=== PATIENT | male | born 1945 | race Caucasian/White ===

== ENCOUNTER 2019-03-21 13:22 | Inpatient (IN) | payer MEDICARE ==
[~2019-03-21] VITALS: Ht 180.3 cm; Wt 78.2 kg
[~2019-03-21 13:22] MED LIST: ATIVAN1 MG PO; CELEXA20 M1 PO; CEPHALEXIN500 MG PO; NORCO1 TA1 PO
--- NOTE | 2019-03-21 13:34 | NUR ---
PT AMB TO ROOM IN NO DISTRESS
[2019-03-21] MEDS ORDERED: DILTIAZEM120 MG PO (13:35)
[2019-03-21] MEDS ORDERED: OXYCODONE10 M1 PO (13:36)
[2019-03-21] MEDS ORDERED: ELIQUIS5 MG PO (13:38)
--- NOTE | 2019-03-21 14:00 | NUR ---
AFTER NEB TX PT CONTINUES WITH INSPIRATORY AND EXPIRATOY WHEEZING. MD AWARE. PT REPORTS BREATHING FEELS BETTER. SP02 92%.
--- NOTE | 2019-03-21 15:00 | NUR ---
AT BEDSIDE TO DISCUSS RESULTS WITH PT. PT AGREED FOR ADMISSION.
[2019-03-21 15:24] LABS: HEMATOCRIT 39.7 % (39.0-50.0); HEMOGLOBIN 12.9 g/dl (14.0-18.0); IMMATURE GRANULOCYTES 0.3 % (0.0-5.0); MEAN CELL VOLUME 90.4 fL CALC (80.0-100.0); MEAN CORPUSCULAR HGB 29.4 pG CALC (26.0-32.0); MEAN CORPUSCULAR HGB CONC 32.5 g/L CALC (32.0-36.0); NEUT# 5.61 thou/uL (1.82-7.42); RED BLOOD COUNT 4.39 mill/uL (4.70-6.10); RED CELL DISTRI WIDTH 13.6 % (11.5-15.5)
[2019-03-21 15:47] LABS: ANION GAP 13 (6-22 (CALC)); BUN 10 mg/dL (8-23); BUN/CREATININE RATIO 15 (12-20 (CALC)); CARBON DIOXIDE 28 mmol/l (22-30); CHLORIDE 101 mmol/l (95-108); CREATININE 0.7 mg/dL (0.7-1.3); GFR > 60 ML/MIN (>=60 (CALC)); GFR FOR AFR.AMER. > 60 ML/MIN (>=60 (CALC)); POTASSIUM 3.7 mmol/l (3.5-5.1); SODIUM 139 mmol/l (137-146)
--- NOTE | 2019-03-21 16:00 | NUR ---
IV ABX AND FLUIDS INFUSIMG WITH NO DIFFICULTY. PT DENIES ANY REDNESS OR EDEMA TO SITE.
--- NOTE | 2019-03-21 16:27 | NUR ---
MD AT BEDSIDE TO DISCUSS RESULTS AND PLAN FOR ADMISSION.
--- NOTE | 2019-03-21 17:00 | NUR ---
PT RESTING IN STRETCHER IN NAD WITH EYES CLOSED. PT AWAKENS TO VERBAL STIMULI. SA02 97% ON 3 L AT THIS TIME.
--- NOTE | 2019-03-21 17:22 | NUR ---
ATTEMPTED TO CALL REPORT, NURSE WILL CALL BACK.
--- NOTE | 2019-03-21 17:32 | NUR ---
PT REPORT CALLED TO VILMA SAGASTUME.
--- NOTE | 2019-03-21 17:45 | NUR ---
Admission Note Report Given to: VILMA SAGASTUME Transported by: X Wheelchair Stretcher Transported with: X Nurse Transporter Patent IV X O2 X Sane Nurse PT TO ROOM 289, VIA WHEELCHAIR IN STABLE CONDITION ON 3 L, NC. CARE RELINQUISHED TO VILMA SAGASTUME.
--- NOTE | 2019-03-21 17:48 | NUR ---
PT ARRIVED FROM ER VIA WC WITH STAFF DEJUAN FAMILY
--- NOTE | 2019-03-21 18:08 | NUR ---
ASSESSMENT IS COMPLETED: IV SITE IS FREE FROM REDNESS OR EDEMA. TELE MONITOR IN PLACE. BREATH SOUNDS ARE WHEEZING BILATERAL WITH R LOWER LOBE GONE FROM SURGERY, HR IS IRREGULAR, PULSES ARE STRONG X4, ABD IS SOFT WITH ACTIVE BS. O2 @ 3LITERS WITH NC. CONTINUE TO OSBERVE AND MONITOR.
[2019-03-21 18:13] VITALS: BP 132/76
--- NOTE | 2019-03-21 18:49 | NUR ---
SPOKE WITH DR JI AND [facility] ([facility]) RE: ROXICODONE AND DILTIAZEM CD. CONFIRMED BOTH ARE WHAT PT TAKES AT HOME. WITH NO ISSUES. VERBALIZED UNDERSTANDING
--- NOTE | 2019-03-21 19:00 | NUR ---
RECEIVED REPORT FROM NURSE SAGASTUME, PATIENT RESTING IN BED C/O GEN BODY PAIN, AWAITING PHARMCY TO VERIFY ROXIDONE.
[2019-03-21 19:10] VITALS: BP 119/73
--- NOTE | 2019-03-21 22:00 | NUR ---
PATIENT ALERT AND ORIENTED X 3 ABLE TO MAKE NEEDS KNOWN, WITH SALINE LOCK ON LFA G20 PATENT AND FLUSHES WELL, REMAINS ON TELE @ SR 68, REMAINS ON O2 @ 3LPM VIA NC WITH SHALLOW, UNLABORED RESPIRATION, CALL LIGHT AT REACH.
--- NOTE | 2019-03-21 22:15 | NUR ---
SPOKE WITH TRISTAN FROM PHARMACY REGARDING CLARIFICATION FOR ROXICODONE AND DILTIAZEM.
[2019-03-21 23:50] VITALS: BP 139/83
--- NOTE | 2019-03-22 | NUR ---
PATIENT RESTING IN BED REMAINS ON O2 @ 3LPM VIA NC, SHALLOW UNLABORED BREATHING, CALL LIGHT AT REACH.
[2019-03-22 03:49] VITALS: BP 146/82
[2019-03-22 05:15] LABS: HEMATOCRIT 37.4 % (39.0-50.0); HEMOGLOBIN 12.3 g/dl (14.0-18.0); IMMATURE GRANULOCYTES 0.2 % (0.0-5.0); MEAN CELL VOLUME 89.3 fL CALC (80.0-100.0); MEAN CORPUSCULAR HGB 29.4 pG CALC (26.0-32.0); MEAN CORPUSCULAR HGB CONC 32.9 g/L CALC (32.0-36.0); NEUT# 3.63 thou/uL (1.82-7.42); RED BLOOD COUNT 4.19 mill/uL (4.70-6.10); RED CELL DISTRI WIDTH 13.5 % (11.5-15.5)
[2019-03-22 05:36] LABS: ANION GAP 9 (6-22 (CALC)); BUN 12 mg/dL (8-23); BUN/CREATININE RATIO 21 (12-20 (CALC)); CARBON DIOXIDE 29 mmol/l (22-30); CHLORIDE 104 mmol/l (95-108); CREATININE 0.6 mg/dL (0.7-1.3); GFR > 60 ML/MIN (>=60 (CALC)); GFR FOR AFR.AMER. > 60 ML/MIN (>=60 (CALC)); POTASSIUM 3.9 mmol/l (3.5-5.1); SODIUM 139 mmol/l (137-146)
--- NOTE | 2019-03-22 06:00 | NUR ---
PATIENT APPEARS TO BE SLEEPING WITH EYES CLOSED, REMAINS ON O2 @ 3LPM, VIA NC EVEN UNLABORED BREATHING CALL LIGHT AT REACH.
[2019-03-22 08:10] VITALS: BP 106/67
--- NOTE | 2019-03-22 08:10 | NUR ---
PATIENT AWAKE, RESTING IN BED ON ROUNDS. BREATH SOUNDS CLEAR, DIMINISHED THROUGHOUT. DRY COUGH NOTED, USING O2 AT 3 L NC. SALINE LOCK IN LFA, SITE BENIGN. SHIFT ASSESSMENT COMPLETED. DISCUSSED PLAN OF CARE. DENIES NEEDS AT THIS TIME. CALL RIOS IN REACH.
[2019-03-22 10:40] VITALS: BP 122/74
--- NOTE | 2019-03-22 12:00 | NUR ---
RESTING QUIETLY IN BED. NO COMPLAINTS VOICED AT THIS ITME. EATING LUNCH.
--- NOTE | 2019-03-22 16:15 | NUR ---
NAPPING ON AND OFF THIS AFTERNOON. AT BEDSIDE AT THIS TIME. ON ENTERING ROOM THERE WAS A STRONG SMELL OF CIGARETTE SMOKE. PATIENT AND HIS BOTH DENY HAVING SMOKED IN THE ROOM. DISCUSSED THE DANGERS OF SMOKING IN THE ROOM, ESPECIALLY WHEN O2 IS IN USE. EXPLAINED THAT [facility] IS A NON-SMOKING FACILITY. PATIENT AND BOTH VERBALIZE UNDERSTANDING OF TEACHING.
[2019-03-22 19:16] VITALS: BP 127/74
--- NOTE | 2019-03-22 19:18 | NUR ---
PATIENT RESTING IN BED AT THIS TIME WITH O2 VIA NASAL CANNULA IN PLACE. HOB ELEVATED AND TELE MONITOR IN PLACE. PATIENT IS C/O PAIN FRON HIS NECK TO HIS BUTTOCKS. TOO EARLY TO MEDICATE AT THIS TIME-WAS LAST MEDICATED WITH ROXICODONE 5MG PO AT 1450 THIS AFTERNOON-MED IS ORDERED Q6H. PATIENT STATES THAT THIS IS NOT RIGHT-CALL PLACED TO DR. MANRIQUE REGUARDING PAIN MEDS. LEFT MESSAGE REGUARDING THIS ISSUE. WILL AWAIT CALL BACK. PATIENT IS AWARE OF THIS CURRENT SITUATION. CALL LIGHT IN REACH. WILL CONT TO MONITOR.
--- NOTE | 2019-03-22 21:15 | NUR ---
PATIENT RESTING IN BED WITH O2 VIA NASAL CANNULA IN PLACE AND WATCHING TV. PATIENT MEDICATED WITH ROXICODONE 10MG PO PER NEW ORDERS RECIEVED. PATIENT APPEARS LESS AGITATED AT THIS ITME. TELE MONITOR IN PLACE. SALINE LOCK INTACT TO RAC SITE. SAFETY PRECAUTIONS REINFORCED. CALL LIGHT IN REACH. WILL CONT TO MONITOR.
[2019-03-23] VITALS: BP 129/77
--- NOTE | 2019-03-23 04:45 | NUR ---
PATIENT RESTING IN BED WITH O2 VIA NASAL CANNULA IN PLACE. LABS WERE DRAWN ORDERED. TELE MONITOR IN PLACE. SALINE LOCK TO LEFT FOREARM INTACT. CALL LIGHT IN REACH. WILL CONT TO MONITOR.
[2019-03-23 05:00] VITALS: BP 127/76
[2019-03-23 05:06] LABS: HEMATOCRIT 39.8 % (39.0-50.0); HEMOGLOBIN 13.4 g/dl (14.0-18.0); IMMATURE GRANULOCYTES 0.3 % (0.0-5.0); MEAN CELL VOLUME 88.2 fL CALC (80.0-100.0); MEAN CORPUSCULAR HGB 29.7 pG CALC (26.0-32.0); MEAN CORPUSCULAR HGB CONC 33.7 g/L CALC (32.0-36.0); NEUT# 3.05 thou/uL (1.82-7.42); RED BLOOD COUNT 4.51 mill/uL (4.70-6.10); RED CELL DISTRI WIDTH 13.2 % (11.5-15.5)
[2019-03-23 05:31] LABS: ANION GAP 12 (6-22 (CALC)); BUN 12 mg/dL (8-23); BUN/CREATININE RATIO 24 (12-20 (CALC)); CARBON DIOXIDE 27 mmol/l (22-30); CHLORIDE 103 mmol/l (95-108); CREATININE 0.5 mg/dL (0.7-1.3); GFR > 60 ML/MIN (>=60 (CALC)); GFR FOR AFR.AMER. > 60 ML/MIN (>=60 (CALC)); MAGNESIUM 1.7 mg/dL (1.6-2.3); POTASSIUM 4.4 mmol/l (3.5-5.1); SODIUM 137 mmol/l (137-146)
[2019-03-23 08:05] VITALS: BP 142/79
--- NOTE | 2019-03-23 08:05 | NUR ---
RESTING IN BED ON ROUNDS AT BEDSIDE. RESP NON-LABORED AT REST. BREATH SOUNDS DIMINSHED BUT ESSENTIALLY CLEAR. SALINE LOCK IN LFA, SITE BENIGN. SHIFT ASSESSMENT COMPLETED. DISCUSSED PLAN OF CARE. DENIES NEEDS AT THIS TIME. CALL RIOS INR EACH.
[2019-03-23 10:25] VITALS: BP 137/80
--- NOTE | 2019-03-23 11:51 | NUR ---
GONZALO BECKER IN ER WATCHING TELEMONITORS CALLED AND STATED PT WAS SHOWING A FIB ON THE MONITOR. ENTERED ROOM PT WATCHING TV WITH VISITORS. NO RESP DISTRESS NOTED. NO COMPLAINTS VOICED. VS 78, 18, 118/68. AUSCULATED HEART SOUNDS, IRREGULAR RHYTHM NOTED. WILL CONTINUE TO MONITOR. CALL LIGHT WITHIN REACH.
--- NOTE | 2019-03-23 12:10 | NUR ---
WATCHING TV AND EATING LUNCH. NO COMPLAINTS VOICED. WAITING FOR DR TO VISIT. PATIENT IS HOPING TO BE DC'D TODAY.
--- NOTE | 2019-03-23 13:00 | NUR ---
DR JI AND Bhupinder CARUSO/SENDY IN TO SEE PATIENT. PROVIDERS ARE AWARE THAT PATIENT IS BACK IN AFIB, PATIENT HAS PRIOR HX OF AFIB FOR WHICH HE TAKES ELIQUIS AND CARDIZEM. PATIENT IS FEELING MUCH BETTER TODAY.
[2019-03-23] MEDS ORDERED: IPRATROPIU0.5 MG/3 M IN (13:46)
[2019-03-23] MEDS ORDERED: ZITHROMAX500 MG PO (13:46)
[2019-03-23] MEDS ORDERED: PREDNISONE50 MG PO (13:46)
--- NOTE | 2019-03-23 14:30 | NUR ---
Discharge instructions given. Patient verbalizes understanding of same. Discharged in stable condition via Wheelchair to Home with spouse. All belongings sent with pt.
[2019-10-21] MEDS ORDERED: HYDROCODONE/ACE1 TAB PO (10:02)
[2019-10-21] MEDS ORDERED: METOPROL TAR25 MG PO (11:03)
[2019-11-17] MEDS ORDERED: HYDROCO/APAP1 TA9 PO (09:20)
[2019-12-23] MEDS ORDERED: HYDROCODONE/ACE1 TAB PO (10:24)
== END 2019-03-23 14:30 | disposition home or self-care (01) | DRG 190 ==
LOC: ED 13:22 → ED-I 16:20 → ED 16:35 → MS2 16:36
PROVIDERS: Family Medicine; Nurse Practitioner Family; ADMIT Internal Medicine; ATTEND Internal Medicine
DX: J44.1 Chronic obstructive pulmonary disease with (acute) exacerbation (principal); J96.21 Acute and chronic respiratory failure with hypoxia; I48.20 Chronic atrial fibrillation, unspecified; I10 Essential (primary) hypertension; F17.210 Nicotine dependence, cigarettes, uncomplicated; G89.29 Other chronic pain; M54.9 Dorsalgia, unspecified; Z90.2 Acquired absence of lung [part of]; Z85.118 Personal history of other malignant neoplasm of bronchus and lung
CPT/HCPCS: G0378

== ENCOUNTER 2019-09-17 00:59 | Inpatient (IN) | payer MEDICARE ==
[~2019-09-17] VITALS: Ht 180.3 cm; Wt 85.8 kg
[~2019-09-17 00:59] MED LIST changes: +DILTIAZEM120 MG PO; +ELIQUIS5 MG PO; +IPRATROPIU0.5 MG/3 M IN; +OXYCODONE10 M1 PO; +PREDNISONE50 MG PO; +ZITHROMAX500 MG PO
--- NOTE | 2019-09-17 01:09 | NUR ---
PT WHEELED TO ROOM 8 FOR TRIAGE.
[2019-09-17 02:41] LABS: IMMATURE GRANULOCYTES 0.4 % (0.0-5.0); MEAN CELL VOLUME 86.4 fL CALC (80.0-100.0); MEAN CORPUSCULAR HGB 29.4 pG CALC (26.0-32.0); MEAN CORPUSCULAR HGB CONC 34.1 g/dL CAL (32.0-36.0); NEUT# 13.34 thou/uL (1.82-7.42); RED BLOOD COUNT 6.18 mill/uL (4.70-6.10); RED CELL DISTRI WIDTH 13.5 % (11.5-15.5)
[2019-09-17 02:42] LABS: HEMATOCRIT 53.4 % (39.0-50.0); HEMOGLOBIN 18.2 g/dl (14.0-18.0)
[2019-09-17 02:46] LABS: ALBUMIN 4.7 g/dL (3.2-5.0); ALKALINE PHOSPHATASE 107 u/l (38-126); AMYLASE 60 u/l (30-110); ANION GAP 14 (6-22 (CALC)); BILIRUBIN, TOTAL 1.9 mg/dL (0.0-1.4); BUN 21 mg/dL (8-23); BUN/CREATININE RATIO 25 (12-20 (CALC)); CARBON DIOXIDE 29 mmol/l (22-30); CHLORIDE 99 mmol/l (95-108); CREATININE 0.8 mg/dL (0.7-1.3); GFR > 60 ML/MIN (>=60 (CALC)); GFR FOR AFR.AMER. > 60 ML/MIN (>=60 (CALC)); LIPASE 16 u/l (23-300); SGOT/AST 56 u/l (19-48); SODIUM 137 mmol/l (137-146); TOTAL PROTEIN 8.8 g/dL (6.3-8.2)
[2019-09-17 02:51] LABS: POTASSIUM 5.1 mmol/l (3.5-5.1)
--- NOTE | 2019-09-17 03:25 | NUR ---
PATIENT TO START ORAL CONTRAST AT 0330, FAMILY AT BEDSIDE TO ASSIST, PATIENT RESTING WITH EYES CLOSED, RESPIRATIONS EVEN AND UNLABORED, C/O PAIN, NO S/S OF DISTRESS NOTED.
--- NOTE | 2019-09-17 04:54 | NUR ---
PATIENT FINISHED ORAL CONTRAST, RADIOLOGY NOTIFIED, NO C/O PAIN OR DISCOMFORT, NO S/S OF DISTRESS NOTED, RESTING QITH EYES CLOSED, AT BEDSIDE.
--- NOTE | 2019-09-17 06:02 | NUR ---
PT RETURNED FROM RADIOLOGY, NO S/S OF DISTRESS NOTED, AT BEDSIDE, RESPIRATIONS EVEN AND UNLABORED.
[2019-09-17 06:17] LABS: URINE BLOOD DIPSTICK TRACE-INTACT (NEGATIVE); URINE GLUCOSE - DIPSTICK NEGATIVE (NEGATIVE); URINE KETONE TRACE mg/dL (NEGATIVE); URINE LEUK ESTERASE NEGATIVE (NEGATIVE); URINE PROTEIN - DIPSTICK 100 mg/dL (NEG-TRACE); URINE SPECIFIC GRAVITY 1.025
[2019-09-17 06:36] LABS: URINE BILIRUBIN - DIPSTICK MODERATE (NEGATIVE); URINE NITRITE - DIPSTICK POSITIVE (Negative)
[2019-09-17 06:37] LABS: URINE COLOR DK. YELLOW
[2019-09-17 06:38] LABS: URINE BACTERIA FEW hpf; URINE SQUAMOUS EPITHELIAL CELL FEW EPI/hpf (0-FEW)
--- NOTE | 2019-09-17 06:56 | NUR ---
HAND OFF REPORT GIVEN TO PATRICE SILVERMAN
--- NOTE | 2019-09-17 07:01 | NUR ---
ASSUMED CARE OF PT. PT RESTING WITH EYES LCOSED, AWAKENS EASILY. SPOUSE AT BEDSIDE.
--- NOTE | 2019-09-17 07:29 | NUR ---
PT AWAKENED TO DISCUSS CLINICAL FINDINGS AND NEED FOR NG TUBE, PT REFUSING NG TUBE, STATES " HELL NO, THAT SHIT IS NOT GOING TO HAPPEN. I'VE HAD A LOT OF MEDICAL THINGS HAPPEN TO ME AND AN NG TUBE TODAY IS NOT GOING TO BE ONE OF THEM" ATTEMPTED TO EXPLAIN THE IMPORTANCE OF NG TUBE BUT PT HAD NO INTEREST IN ANY CONVERSATION CONCERNING NG TUBE AND REFUSES IT REPEATEDLY. DR CAMPBELL NOTIFIED.
--- NOTE | 2019-09-17 08:59 | NUR ---
WARM BLANKETS APPLIED FOR PT COMFORT. HE VERBALIZED APPRECIATION.
--- NOTE | 2019-09-17 09:14 | NUR ---
REPORT GIVEN TO STEVEN IBRAHIM.
--- NOTE | 2019-09-17 09:28 | NUR ---
PT TO ROOM VIA WC ACCOMPANIED BY NURSE AND SPOUSE; PT TO BRP WITH STAND BY ASSIST; PT HAD SMALL HARD BROWN STOOL; VS AND WT OBTAINED; PT AND SPOUSE ORIENTED TO ROOM AND CALL SYSTEM; PT C/O ABD PAIN 8/10 AND NAUSEA, MEDICATED ORDERED; IVF INFUSING IN #18 GAUGE LAC WITHOUT REDNESS OR EDEMA NOTED; PT INSTRUCTED ON NPO STATUS, VERBALIZE UNDERSTANDING OF SAME; CALL RIOS WITHIN REACH; WILL CONTINUE TO MONITOR.
[2019-09-17 09:34] VITALS: BP 151/93
--- NOTE | 2019-09-17 10:33 | NUR ---
PT RESTING WITH EYES CLOSED; SPOUSE AT BEDSIDE; NO S/SX OF DISTRESS NOTED; WILL CONTINUE TO MONITOR
--- NOTE | 2019-09-17 12:14 | NUR ---
PT CONTINUES TO REST WITH EYES CLOSED; NO S/SX OF DISTRESS NOTED; SPOUSE AT BEDSIDE; WILL CONTINUE TO MONITOR.
--- NOTE | 2019-09-17 12:20 | NUR ---
DR. BAXTER IN TO SEE PT; PLAN OF CARE DISCUSSED
--- NOTE | 2019-09-17 13:59 | NUR ---
PT TOLERATED FULL LIQ DIET WELL; SPOUSE IN ROOM; CALL RIOS WITHIN REACH; WILL CONTINUE TO MONITOR.
[2019-09-17 15:34] VITALS: BP 146/77
[2019-09-17 19:03] VITALS: BP 139/92
--- NOTE | 2019-09-17 20:45 | NUR ---
UPON ENTERING ROOM PT FOUND TO BE LAYING ON HIS SIDE. SPOUSE AT BEDSIDE. PHYSICAL ASSESMENT COMPLETE. PT REPORTS UNRELIEVED N/V. PT AND SPOUSE REQUESTING PHENERGAN FOR N/V THEY FEEL IT WAS MORE EFFECTIVE THAN ZOFRAN WHEN HE HAD PREVIOUSLY HAD A DOSE. EDUCATION PROVIDED ON NGT MOST EFFECTIVE INTERVENTION FOR PT'S SBO RELATED SYMPTOMS. PT DOES CON'T TO DECLINE.PLAN OF CARE FURTHER REVIEWED W/ PT AND SPOUSE. PT AND SPOUSE VERBALIZE UNDERSTANDING, DENY QUESTIONS. ITEMS WITHIN REACH. BED LOCKED IN LOW POSITION W/ BEDRAILS UPX2. CALL RIOS WITHIN REACH, AGREES TO CALL PRN. SPOKE W/ DR. COHN, REPORTED ABD PAIN, UNRELIEVED N/V, PT AND SPOUSES REQUEST FOR PHENERGAN, LAST WBC COUNT AND CURRENT VS/ASSESEMENT. ORDERS RECEIVED FOR PHENERGAN, NPO, ABD X-RAY IN AM.
--- NOTE | 2019-09-17 22:10 | NUR ---
MEDICATED W/ PHENERGAN FOR N/V AND MORPHINE FOR ABD PAIN 10/07, SEE MAR.
--- NOTE | 2019-09-17 22:30 | NUR ---
PT'S SPOUSE CALLS NURSES STATION FOR UPDATE ON PT'S STATUS. PROVIDES APPROPRITAE COMMUNICATION CODE #. UPDATE PROVIDED.
[2019-09-18] VITALS (12 sets, daily range): BP systolic 110–145; BP diastolic 65–95
--- NOTE | 2019-09-18 00:15 | NUR ---
PT APPEARS TO BE SLEEPING COMFORTABLE ON HIS SIDE. NO APPARENT DISTRESS RESPIRATIONS REGULAR AND UNLABORED. CALL RIOS REMAINS WITHIN REACH.
--- NOTE | 2019-09-18 02:16 | NUR ---
PT REPORTS WAKING UP W/ 12/08 ABD PAIN. MEDICATED W/ MORPHINE AND ZOFRAN. SEE MAR.
--- NOTE | 2019-09-18 05:17 | NUR ---
RADIOLOGY AT BEDSIDE FOR AM ABD X-RAY.
--- NOTE | 2019-09-18 06:30 | NUR ---
PT REPORTS ABD PAIN AND N/V IS INCREASING IN SEVERITY, AGREES TO ATTEMPT NGT INSERTION. ATTEMPTED TO INSERT AND PT IMMEDIATELY PULLED THIS NURSES ARM AND THE NGT FORCEFULLY FROM HIS NARE AND REFUSED TO CARRY ON W/ INSERTION ATTEMPT.
--- NOTE | 2019-09-18 07:29 | NUR ---
PT RESTING IN BATHROOM VOMITING, PT STATES HE COULD NOT TAKE THE NGT INSERTION. DISCUSSED BENEFITS OF NGT AND POC, PT VERBALIZED UNDERSTANDING. RESP EVEN AND UNLABORED. ASSISTED PT BACK IN BED. ASSESSMENT COMPLETED, CALL LIGHT IN REACH,CONTINUE TO MONITOR.
--- NOTE | 2019-09-18 09:38 | NUR ---
PT IN BATHROOM, VOMITING SMALL AMT OF BLOOD NOTED. AT BEDSIDE. PT VOICES NO NEEDS OR COMPLAINTS, PT MEDICATED FOR NAUSEA AND PAIN. CALL LIGHT IN REACH,CONTINUE TO MONITOR.
--- NOTE | 2019-09-18 10:54 | NUR ---
TO SEE PT DISCUSS POC AND PLANS FOR SURGERY.
--- NOTE | 2019-09-18 11:11 | NUR ---
DISCUSSED WITH PT REGARDING SURGERY, OBTAINED CONSENT , AT BEDSIDE. CALL LIGHT IN REACH,CONTINUE TO MONITOR.
--- NOTE | 2019-09-18 12:23 | NUR ---
OR ARRIVED TO TAKE PT FOR SURGERY, DISCUSSED RAPID COVID SWAB, PT SWABBED BY OR NURSE. ANCEF INFUSION INITIATED. CALL LIGHT IN REACH,CONTINUE TO MONITOR.
--- NOTE | 2019-09-18 12:32 | NUR ---
PT TAKEN TO OR VIA BED ACCOMPANIED BY STAFF
--- NOTE | 2019-09-18 15:55 | NUR ---
PT RETURNED FROM OR VIA BED, NO SIGNS OF DISTRESS NOTED, RESP EVEN AND UNLABORED. PT DROWSY FROM ANETHES[place], 2 OR NURSES WITH PT. SCD'S PLACED. DRESSING TO ABD CDI, ABDOMINAL BINDER IN PLACE. TUCKER DRAINING TO GRAVITY, STAT LOCK IN PLACE. NGT TO L NARE CHECKED FOR PLACEMENT AND CONNECTED TO CONTINUOUS LOW SUCTION PER ORDERS. INCENTIVE SPIROMETER PLACED AT BEDSIDE WILL DISCUSS WITH PT, 02 3L NC AND VITALS OBTAINED. CALL LIGHT IN REACH, CONTINUE TO MONITOR.
--- NOTE | 2019-09-18 17:03 | NUR ---
PT STATES HE HAS TO HAVE A BM, PT PLACED ON BEDPAN AT THIS TIME. AT BEDSIDE, CONTINUE TO MONITOR.
--- NOTE | 2019-09-18 17:18 | NUR ---
PT ADAMANT ABOUT GETTING UP BSC INSTEAD OF BEDPAN. PT ASSISTED TO BSC, TOLERATED WELL. AT BEDSIDE, PT TO CALL ONCE READY TO RETURN TO BED. CALL LIGHT IN REACH,CONTINUE TO MONITOR.
--- NOTE | 2019-09-18 20:30 | NUR ---
UPON PHYSICAL EXAM RAPID AND IRREGULAR APICAL HEART SOUNDS APPRECIATED. PT HAS A KNOWN HISTORY OF AFIB. CARDIZEM DOSE GIVEN @ THIS TIME. PT TOLERATED W/ SMALL SIPS OF WATER. SUCTION OFF/NGT CLAMPED @ THIS TIME. VICE PRESIDENT TALENT MANAGEMENT REQUESTED FROM ED.
--- NOTE | 2019-09-18 20:45 | NUR ---
FOOD SERVICE SUPERVISOR SHOWS RAPID AFIB W/ RVR RATE 120'S-150S PER ED SOUND EQUIPMENT MECHANIC. DR. BAXTER CALLED AND UPDATED W/ FINDINGS. ORDER IS TO COSNULT DR. MANRIQUE FOR MEDICAL MANAGMENT.
--- NOTE | 2019-09-18 21:05 | NUR ---
DR. MANRIQUE INFORMED OF CONSULT AND EXAM FINDINGS, ORDER IS FOR AMIODARONE 150MG IV X1.
--- NOTE | 2019-09-18 22:00 | NUR ---
PER INTERACTIVE MEDIA DESIGNER PT WILL NEED TO BE MOVED TO ICU FOR AMIODARONE BOLUS. DR MANRIQUE INFORMED. CLARIFICATION RECEIVED TO TX TO ICU AND GIVE AMIODARONE 150MG IV BOLUS, REPEAT X1 IF INEFFECTIVE.
--- NOTE | 2019-09-18 22:15 | NUR ---
PT INFORMED OF TX TO ICU, CALLED PTS AND INFORMED HER OF ICU TX.
--- NOTE | 2019-09-18 22:30 | NUR ---
REPORT ENDORSED TO Misa NASSAR RN IN ICU.
--- NOTE | 2019-09-18 22:40 | NUR ---
PT TRANSFERRED TO ICU ROOM #3 W/O INCIDENT.
--- NOTE | 2019-09-18 22:45 | NUR ---
RECEIVED FROM M/S VIA BED D/T PATIENT AFIB RVR EARLIER ON MS WITH HR REPORTED 120-50'S. PATIENT PLACED ON ICU HEEL SCORER SHOWING AFIB, VARIABLE HR 110'S-120'S. RESP NON-LABORED. O2 ON AT 4 L NC. SHIFT ASSESSMENT COMPLETED. ORIENTED PATIENT TO SURROUNDING AND EXPLAINED PLAN OF CARE. REASURRANCE PROVIDED REGARDING BEING TRANSFERRED TO ICU. CALL RIOS IN REACH.
--- NOTE | 2019-09-18 23:07 | NUR ---
BP 113/86, HR 112. AMIODARONE 150 MG/100 ML NS BOLUS STARTED.
--- NOTE | 2019-09-18 23:12 | NUR ---
BP 128/77, HR 116.
--- NOTE | 2019-09-18 23:17 | NUR ---
AMIODARONE BOLUS COMPLETED. BP 108/75, HR 108.
--- NOTE | 2019-09-18 23:27 | NUR ---
MEDICATED WITH DILAUDID ORDERED FOR C/O OPERATIVE PAIN RATES 11/07.
--- NOTE | 2019-09-18 23:37 | NUR ---
DR. MANRIQUE INFORMED OF CONSULT, ORDER IS FOR AMIODARONE 150MG IV X1.
[2019-09-19] VITALS (16 sets, daily range): BP systolic 97–159; BP diastolic 73–90
--- NOTE | 2019-09-19 02:30 | NUR ---
TURNS AND REPOSITIONS SELF WELL. MEDICATED FOR OPERATIVE PIN ORDERED.
--- NOTE | 2019-09-19 03:00 | NUR ---
RESTING WITH EYES CLOSED.
--- NOTE | 2019-09-19 04:45 | NUR ---
[facility]. MEDICATED FOR C/O PAIN ORDERED.
[2019-09-19 05:10] LABS: IMMATURE GRANULOCYTES 0.2 % (0.0-5.0); MEAN CELL VOLUME 89.9 fL CALC (80.0-100.0); MEAN CORPUSCULAR HGB 29.7 pG CALC (26.0-32.0); MEAN CORPUSCULAR HGB CONC 33.1 g/dL CAL (32.0-36.0); NEUT# 4.21 thou/uL (1.82-7.42); RED BLOOD COUNT 4.17 mill/uL (4.70-6.10); RED CELL DISTRI WIDTH 13.7 % (11.5-15.5)
[2019-09-19 05:12] LABS: HEMATOCRIT 37.5 % (39.0-50.0); HEMOGLOBIN 12.4 g/dl (14.0-18.0)
[2019-09-19 05:48] LABS: ANION GAP 6 (6-22 (CALC)); BILIRUBIN, TOTAL 1.3 mg/dL (0.0-1.4); BUN 21 mg/dL (8-23); BUN/CREATININE RATIO 25 (12-20 (CALC)); CARBON DIOXIDE 31 mmol/l (22-30); CHLORIDE 103 mmol/l (95-108); CREATININE 0.8 mg/dL (0.7-1.3); GFR > 60 ML/MIN (>=60 (CALC)); GFR FOR AFR.AMER. > 60 ML/MIN (>=60 (CALC)); POTASSIUM 4.2 mmol/l (3.5-5.1); SGOT/AST 18 u/l (19-48); SODIUM 135 mmol/l (137-146)
[2019-09-19 05:49] LABS: ALBUMIN 2.6 g/dL (3.2-5.0); ALKALINE PHOSPHATASE 40 u/l (38-126)
--- NOTE | 2019-09-19 06:00 | NUR ---
RESTING WITH EYES CLOSED. PHONED IN EARLIER FOR CONDITION UPDATE.
--- NOTE | 2019-09-19 07:20 | NUR ---
pt awake in bed; no apparent distress noted; assessment completed at this time; pt alert and oriented; complaints of abd pain rating 10/10; will medicate; no n/v noted; resp even and unlabored; lungs noted wihtth upper ant wheezing otherwise clear; skin color wnl; o2 per nc at 4L; hr irreg; strong pulses; no edema noted; bilat scds intact; afib on monitor; abd soft with bs hypoactibe in rlq otherwise absent; no bm noted; pt denies passing flatus; lazar to gravity draining ramiro urine; #18 flushed and patent to lac; fluids infusing without complication; no redness or edema noted at site; ng tube to lis intact to left nare with tea colored gastric secretions; abd binder intact/ repositioned; cough, deep breathing explained; IS at bedside; pt instructed to use q1 hr x 10 reps; call light within reach; will continue to monitor
--- NOTE | 2019-09-19 08:03 | NUR ---
resting in bed on left side with eyes closed; no apparent distress noted; afib on monitor; call light within reach; will continue to monitor
--- NOTE | 2019-09-19 08:40 | NUR ---
Dr Molina present at bedside to assess and discuss plan care; dressing to remain in place today; jingle writer to speak with Dr Banks in regards to heparin sq/ Eliquis to remain on hold
--- NOTE | 2019-09-19 09:00 | NUR ---
spouse present at bedside; pt with complaints of pain; medicated as per orders; spouse updated on plan of care
--- NOTE | 2019-09-19 10:05 | NUR ---
Dr Banks present at bedside to assess pt and discuss plan of care; spouse present at bedside; iv intact and patent; afib on monitor; call light within reach; will continue to monitor
--- NOTE | 2019-09-19 10:24 | NUR ---
NS bolus initiated as per orders for tachycardia; afib 137 on monitor; will continue to monitor
--- NOTE | 2019-09-19 12:08 | NUR ---
awake in bed; spouse present at bedside; no apparent distress noted; resp even and unlabored; remains npo; ice chips provided; ng tube intact; afib on monitor with hr between 116-140s; call light within reach; will continue to monitor
--- NOTE | 2019-09-19 14:20 | NUR ---
awake in bed; spouse present at bedside; no apparent distress noted; pt assist to recliner x2 staff; admits to abd pain; abd binder intact; ng tube clamped for cardizem admin; afib on monitor; monitoring attachments connected; call light within reach; will continue to monitor
--- NOTE | 2019-09-19 16:03 | NUR ---
pt awake in recliner; no apparent distress noted; spouse present at bedside; pt remains up to recliner; afib 100 on monitor; lazar to gravity; iv intact and patent; ng tube intact; pt admits to pain relief; pt admits to taking a lot of pain meds at home; call light within reach; will continue to monitor
--- NOTE | 2019-09-19 18:20 | NUR ---
awake in recliner; no apparent distress noted; spouse at bedside; resp even and unlabored; iv intact and patent; afib on monitor; ng tube connected to LCS; lazar to gravity; call light within reach
--- NOTE | 2019-09-19 19:35 | NUR ---
SITTING UP IN RECLINER. C/O OPERATIVE PAIN RATES 8/10. MEDICATED WITH DILAUDID ORDERED. RESP NON-LABORED. O2 ON AT 4 L NC. O2 SAT 97% BREATH SOUNDS CLEAR. ENC COUGHING AND DEEP BREATHING EXERCISES. USES IS-10 REPITIONS, VOLUME 750. SHIFT ASSESSMENT COMPLETED. IV IN LAC, SITE BENIGN. D5LR INFUSING AT 150 ML/HR. DISCUSSED PLAN OF CARE AND MEDICATION SCHEDULE. PATIENT DENIES NEEDS AT THIS TIME. CALL RIOS IN REACH. MONITOR AFIB VARIABLE HR 100-110'S.
--- NOTE | 2019-09-19 21:50 | NUR ---
MEDICATED AGAIN FOR C/O OPERATIVE PAIN. WILLIAM SITTING UP IN CHAIR.
--- NOTE | 2019-09-19 22:45 | NUR ---
PATIENT ATTEMPTING TO GET UP TO BSC FROM RECLINER ON HIS OWN. ASSISTED PATIENT TO BSC AND REINSTRUCTION ON CALLING NURSE FOR ASSISTANCE. NO BM. ASSISTED BACK TO BED. HR HAS BEEN RUNNING UPPER 120'S OVER PAST HALF AN HOUR. WILL CONTINUE TO MONITOR.
--- NOTE | 2019-09-19 23:05 | NUR ---
PATIENT RESTING IN BED CALMLY AND QUIETLY. CONTINUES IN AFIB ON MOITOR, HR VARIABLE 120'S-150'S. INFOMRED DR MANRIQUE OF ELEVATED HR, NEW ORDERS RECEIVED.
[2019-09-20] VITALS (18 sets, daily range): BP systolic 107–159; BP diastolic 69–90
--- NOTE | 2019-09-20 00:15 | NUR ---
20 MG CARDIZEM BOLUS GIVEN OVER 2 MINUTES PER PROTOCOL. CARDIZEM GTT STARTED AT 10 MG/HR. HR 90'S-110.
--- NOTE | 2019-09-20 01:10 | NUR ---
MEDICATED FOR PAIN ORDERD. IV INFUSING WITHOUT INCIDENT.
--- NOTE | 2019-09-20 02:10 | NUR ---
RESTING WITH EYES CLOSED. RESP NON-LABORED.
--- NOTE | 2019-09-20 04:15 | NUR ---
REAMINS IN AFIB ON MONITOR, HR 80'S-90'S. VSS. CARDIZEM GTT CONTINUES AT 10 MG/HR.
--- NOTE | 2019-09-20 06:00 | NUR ---
MEDICATED FOR ABD PAIN EARLIER, PATIENT STATES PAIN IS SUBSIDING. IV SITE MAINTAINED IN LFA WITH CARDIZEM GTT INCREASED TO 15 MG/HR. LAC IV SITE WITH D5LR INFUSING AT 150 ML/HR. BOTH IV SITES BENIGN. NGT OUTPUT I CHILD ADVOCATE COLE THIS MORNING WITH DARK FLECKS. TUCKER DRAINED 1000 ML OF CLEAR FELECIA URINE. REMAINS AFIB ON MONITOR.
--- NOTE | 2019-09-20 06:45 | NUR ---
RECIEVED REPORT FROM PATRICE DAVISON. ASSUMED PT CARE.
--- NOTE | 2019-09-20 07:00 | NUR ---
DR. BAXTER AT BEDSIDE FOR ASSESSMENT AND TO DISCUSS PLAN OF CARE. NEW ORDERS RECIEVED.
--- NOTE | 2019-09-20 07:05 | NUR ---
PT A&0X3, ABLE TO MAKE NEEDS. REMAINS AFIB ON TELEMETRY, HR 83. PT DENIES CP, SOB. NG INTACT WITH INTERMITTANT SUCTION, LIGHT BROWN.,RESPIRATIONS EVEN/UNLABORED, LS CLEAR THROUGHOUT, SA02@93% ON 4LPM/NC. ABDOMEN TENDER, BS ABSENT X3. ABDOMINAL BINDER INTACT, DRSG CDI, NO DRAINAGE NOTED. TUCKER PATENT, DRAINING TO BSD VIA GRAVITY, CLEAR FELECIA URINE NOTED. SCD'S BLE INTACT. PT REMAINS NPO, CALL LIGHT IN REACH. WILL MONITOR.
--- NOTE | 2019-09-20 09:11 | NUR ---
PT MEDICATED FOR ABDOMINAL PAIN ORDERED, PER PT REQUEST. 09/07. TUCKER CATHETER REMOVED AFTER DEFLATING 10ML BALLOON, PT TOLERATED WELL.
--- NOTE | 2019-09-20 09:41 | NUR ---
PT ASSISTED, SBA TO RECLINER, PT TOLERATED TRANSFER WELL. PT VOIDED 50ML IN URINAL. CALL LIGHT IN REACH. WILL MONITOR.
--- NOTE | 2019-09-20 10:00 | NUR ---
DR. GOMEZ AT BEDSIDE FOR ASSESSMENT AND TO DISCUSS PLAN OF CARE. NEW ORDERS RECIEVED.
--- NOTE | 2019-09-20 10:09 | NUR ---
PT CALLED WITH CODE, UPDATE GIVEN. PT AWARE.
--- NOTE | 2019-09-20 10:30 | NUR ---
NG TUBE CLAMPED OFF, PO MEDS GIVEN. CARDIZEM TITRATED TO 10MG/ML. REMAINS AFIB ON TELEMETRY, HR 91. PT TOLERATED WELL. CALL LIGHT IN REACH. WILL MONITOR.
--- NOTE | 2019-09-20 11:19 | NUR ---
PT MEDICATED FOR ABDOMINAL PAIN11/07 ORDERED PER PT REQUEST. NG TUBE REMAINS CLAMPED. TITRATED CARDIZEM TO 5MG/HR. CALL LIGHT IN REACH. WILL MONITOR.
--- NOTE | 2019-09-20 12:00 | NUR ---
PT AT BEDSIDE WITH PT.
--- NOTE | 2019-09-20 12:23 | NUR ---
PT REMAINS SITTING IN RECLINER, CARDIZEM GTT OFF, NG REMAINS CLAMPED. PT DENIES N/V AT THIS TIME. PT DENIES PASSING GAS.CALL LIGHT IN REACH. WILL MONITOR.
--- NOTE | 2019-09-20 13:30 | NUR ---
PT SON ARRIVED AT BEDSIDE.
--- NOTE | 2019-09-20 13:50 | NUR ---
PT MEDICATED FOR ABDOMINAL PAIN 11/07 ORDERED PER PT REQUEST. BSX4 HYPOACTIVE. PT STATED HE MIGHT HAVE TO HAVE A BM SOON, DECLINED TRANSFER TO BSC AT THIS TIME. CALL LIGHT IN REACH. WILL MONITOR.
--- NOTE | 2019-09-20 15:09 | NUR ---
PT SON LEFT BEDSIDE. PT REMAINS IN RECLINER, SLEEPING WITH EYES CLOSED. CALL LIGHT IN REACH. WILL MONITOR.
--- NOTE | 2019-09-20 16:03 | NUR ---
PT ASSISTED TO BSC, TRANSFERRED WELL. CALL LIGHT IN REACH. WILL MONITOR.
--- NOTE | 2019-09-20 16:32 | NUR ---
PT AT BEDSIDE, CM NOTIFIED.
--- NOTE | 2019-09-20 18:36 | NUR ---
PT RESTING IN RECLINER WITH AT BEDSIDE, NG INTACT ON INTERMITTENT SUCTION.CALL LIGHT IN REACH. WILL MONITOR.
--- NOTE | 2019-09-20 19:25 | NUR ---
SITTING UP IN RECLINER. MEDICATED FOR ABDOMINAL PAIN RATES 11/07. RESP NON-LABORED. O2 ON AT 4 L NC. O2 SAT 95% BREATH SOUNDS CLEAR. ENCOURAGED USE OF INCENTIVE SPIROMETER. ABD DISTENDED AND SOMEWHAT FIRM WITH HYPOACTIVE BOWEL SOUNDS HEARD. NGT TO LIS DRAINS COLE MATERIAL. PASSING FLATUS. NO BM OF YET. VOIDS IN URINAL SMALL AMOUNTS CLEAR DARK FELECIA URINE. NO PERIPHERAL EDEMA. SCD'S ON. SALINE LOCK INTACT IN LFA, SITE BENIGN, FLUSHED AND PATENT. IV IN LAC WITH D5LR AT 100 ML/HR, SITE HEALTY. BENCH BORING MACHINE OPERATOR SHOWS AFIB VARIABL HR 90'S-110. DISCUSSED PLAN OF CARE. DENIES NEEDS AT THIS TIME. CALL [place].
--- NOTE | 2019-09-20 21:30 | NUR ---
PATIENT STATES HE WOULD LIKE TO SLEEP IN RECLINER TONIGHT. MEDICATED FOR C/O ABD PAIN.
--- NOTE | 2019-09-20 22:00 | NUR ---
RESTING WITH EYES CLOSED. RESP NON-LABORED.
--- NOTE | 2019-09-20 23:45 | NUR ---
PATIENT ASSISTED UP TO BSC. PASSING GAS, NO BM. ASSISTED BACK TO BED. RESP SLT LABORED WITH EXERTION. ENCOURAGED DEEP BREATHING.
[2019-09-21] VITALS (12 sets, daily range): BP systolic 96–143; BP diastolic 67–98
--- NOTE | 2019-09-21 00:15 | NUR ---
RESTING WITH EYES CLSOED. RESP NON-LABORED AT REST. AFIB ON MONITOR WITH VARIABLE HR 90'S-110'S.
--- NOTE | 2019-09-21 02:00 | NUR ---
SLEEPIN. RESP NON-LABORED. VSS.
--- NOTE | 2019-09-21 03:00 | NUR ---
PATIENT UP TO BSC ON HIS OWN, TANGLED IN CORDS TO MONITORS AND IV TUBING. NGT FOUND OUT. PASTIENT PASSING FLATUS, NO BM. DISCUSSED REINSERTING NGT-WILL MONITOR PATIENT FOR N/V. REMINDED PATIENT TO CALL FOR ASSISANCE TO GET OOB. PATIENT VERBALIZES UNDERSTANDING. C/O AB PAIN.
--- NOTE | 2019-09-21 03:15 | NUR ---
MEDICATED WITH DILAUDID 1 MG FOR C/O ABD PAIN 12/08. CALL RIOS IN REACH.
--- NOTE | 2019-09-21 03:52 | NUR ---
RESTING WITH EYES CLOSED. VSS. RESP NON-LABORED AT REST. AFIB ON MONITOR, HR 80'S-90'S. IV INFUSING WITHOUT INCIDENT.
[2019-09-21 05:19] LABS: HEMATOCRIT 38.7 % (39.0-50.0); HEMOGLOBIN 13.1 g/dl (14.0-18.0); MEAN CELL VOLUME 86.8 fL CALC (80.0-100.0); MEAN CORPUSCULAR HGB 29.4 pG CALC (26.0-32.0); MEAN CORPUSCULAR HGB CONC 33.9 g/dL CAL (32.0-36.0); RED BLOOD COUNT 4.46 mill/uL (4.70-6.10)
[2019-09-21 05:51] LABS: ALBUMIN 2.9 g/dL (3.2-5.0); ALKALINE PHOSPHATASE 59 u/l (38-126); ANION GAP 8 (6-22 (CALC)); BILIRUBIN, TOTAL 1.6 mg/dL (0.0-1.4); BUN 10 mg/dL (8-23); BUN/CREATININE RATIO 17 (12-20 (CALC)); CARBON DIOXIDE 31 mmol/l (22-30); CHLORIDE 97 mmol/l (95-108); CREATININE 0.6 mg/dL (0.7-1.3); GFR > 60 ML/MIN (>=60 (CALC)); GFR FOR AFR.AMER. > 60 ML/MIN (>=60 (CALC)); POTASSIUM 3.5 mmol/l (3.5-5.1); SGOT/AST 22 u/l (19-48); SODIUM 133 mmol/l (137-146); TOTAL PROTEIN 5.9 g/dL (6.3-8.2)
--- NOTE | 2019-09-21 06:16 | NUR ---
NO CHNGES TO REPORT. VSS. NO C/O NAUSEA OR EMESIS. VOIDS IN URINAL. IV SITE MAINTAINED IN LAC AND SALINE LOCK IN LFA. CONTINUES IN AFIB ON MOITOR , HR 90'S.
--- NOTE | 2019-09-21 06:45 | NUR ---
REPORT RECEIVED FROM ERIKA IBRAHIM. CARE ASSUMED.
--- NOTE | 2019-09-21 06:45 | NUR ---
MIDLINE ABD DSG CHANGED FOR SMALL AMOUNT OLD DRIED BLOODY DRAINAGE, YAYA INTACT, INC LINE CLEAN, DRY AND WELL APPROXIMATED. 3 PUNCTURE SITES ON LEFT ABD WITH NO DRAINAGE ON OLD DSG, YAYA INTACT TO EACH SITE. ALL INC CLEANSED WITH NS. MIDLINE INC REDRESSED WITH TELFA DSG SECURED WITH TEGADERM. PUNCTURE SITES TO LEFT ABD COVERED WITH 2X2, SECURED WITH TEGADER. SCD'S CHANGED TO KNEE HIGH REGINALD HOSE. PATIENT ASSISTED UP TO BSC.
--- NOTE | 2019-09-21 07:00 | NUR ---
PATIENT C/O NAUSEA HAD EMESIS OF APPROX 100 ML BILIOUS MATERIAL. ASSISTED BACK TO BED, NO BM, PASSING FLATUS. #16 FR NGT REINSERTED TO RIGHT NARE, PLACEMENT CONFIRMED WITH AIR BOLUS. NGT TO LIS DRAINING BLOOD TINGED COLE SECRETIONS.
--- NOTE | 2019-09-21 07:20 | NUR ---
PT RESTING IN BED AWAKE. PT ALERT AND ORIENTED X3. SHIFT ASSESSMENT COMPLETED AT THIS TIME. IV PATENT X2. PT REQUESTING PAIN MEDICATION AT THIS TIME. PT MEDICATED PER REQUEST. CALL LIGHT IN REACH. WILL CONTINUE TO CLOSELY MONITOR.
--- NOTE | 2019-09-21 07:30 | NUR ---
RT AT BEDSIDE FOR NEB TREATMENT
--- NOTE | 2019-09-21 08:50 | NUR ---
PT MEDICATED WITH AM MEDS. NG CLAMPED AT THIS TIME.
--- NOTE | 2019-09-21 09:41 | NUR ---
PT ASSISTED UP TO BSC TO ATTEMPT FOR A BM. PT TOLERATED TRANSFER WELL.
--- NOTE | 2019-09-21 09:56 | NUR ---
PT UNABLE TO HAVE BOWEL MOVEMENT ASSISTED BACK TO BED. PLACED NG BACK ON LIS AT THIS TIME.
--- NOTE | 2019-09-21 09:57 | NUR ---
DR GOMEZ AT BEDSIDE AT THIS TIME.
--- NOTE | 2019-09-21 10:48 | NUR ---
PT ASSISTED FROM SITTING ON SIDE OF BED TO LYING DOWN. PT ENCOURAGED TO TAKE A NAP DUE TO NOT RESTING THROUGH NIGHT. PT AGREED. BED ALARM SET FOR PT SAFETY. DOOR CLOSED TO REDUCE NOISE. CALL LIGHT IN REACH. WILL CONTINUE TO MONITOR.
--- NOTE | 2019-09-21 10:58 | NUR ---
DR BAXTER AT BEDSIDE AT THIS TIME.
--- NOTE | 2019-09-21 11:10 | NUR ---
NGTUBE CLAMPED PER MD VERBAL ORDER. ENCOURAGED PT TO REST. BED ALARM IN PLACE FOR PT SAFETY.
--- NOTE | 2019-09-21 12:02 | NUR ---
PT OFF BED NICHOLSON. PT CLEANSED. OF SMALL LIQUID BM. ZINC OXIDE PASTE APPLIED. WILL CONTINNUE TO CLOSELY MONITOR.
--- NOTE | 2019-09-21 12:12 | NUR ---
PT RESTING IN BED WITH EYES CLOSED. RESP ARE EVEN AND UNLABORED. NO DISTRESS NOTED. CALL LIGHT IN REACH. BED ALARM IN PLACE. WILL CONTINUE TO MONITOR
--- NOTE | 2019-09-21 13:08 | NUR ---
PHYSICAL THERAPY AT BEDSIDE AT THIS TIME.
--- NOTE | 2019-09-21 13:42 | NUR ---
PT SITTING UP IN RECLINER AT BEDSIDE. SPOUSE IN ROOM. PT PROVIDED PAIN MEDICATION. PT PROVIDED NEB TREATMENT. LINENS CHANGED. CALL LIGHT IN REACH. WILL CONTINNUE TO MONITOR.
--- NOTE | 2019-09-21 13:55 | NUR ---
Pt. found resting in bed, treatment plan explained. Pt. in agreement to participate. Attachments removed by attending nurse before treatment and reattached after treatment. Pt. performed supine to sitting at EOB with min. assist x 1. Sit to stand with v.c.'s for UE push off. Pt. ambulated 2x20 feet using RW and portable O2 at 4L. CGA x 1 provided throughout ambulation and assist from 2nd staff member for handling portable O2. Continual v.c.'s given for proper use of RW, sequencing and safety awareness. After ambulation pt. returned to resting in recliner as requested by nurse of which pt. was in agreement with. V.c.'s required for reaching back to recliner for graded lowering. O2 sats monitored throughout and maintained 91-94%. Pt. left resting comfortably with spouse in room, without questions/concerns. AMPAC score:13.
--- NOTE | 2019-09-21 15:15 | NUR ---
PT ASSISTED BACK TO BED AT THIS TIME. SPOUSE AT BEDSIDE. CALL LIGHT IN REACH. WILL CONTINUE TO MOIOTR.
--- NOTE | 2019-09-21 16:12 | NUR ---
PT RESTING IN BED WITH EYES CLOSED AT THIS TIME. RESP ARE EVEN AND UNLABORED. NO DISTRESS NOTED. VSS ON MONITOR. CALL LIGHT IN REACH. WILL CONTINUE TO MONITOR.
--- NOTE | 2019-09-21 16:20 | NUR ---
PT DENIES N/V AT THIS TIME. NG TUBE REMOVED. PER MD ORDERS FROM EARLIER TODAY. WILL PROCEED WITH CLEAR LIQUID DIET
--- NOTE | 2019-09-21 16:36 | NUR ---
PT ASSISTED UP TO BSC TO ATTEMPT BM AT THIS TIME.
--- NOTE | 2019-09-21 17:00 | NUR ---
PT ASSISTED BACK TO BED NO BM.
--- NOTE | 2019-09-21 19:15 | NUR ---
RESTING IN BED ON ROUNDS. PATIENT STATES FEELING MUCH BETTER THIS EVENING. RESP NON-LABORED AT REST. O2 ON AT 4 L NC. O2 SAT 93% BREATH SOUNDS REVEAL FAINT WHEEZES IN BILATERAL UPPER LOBES. ENCOURAGE TO COUGH AND DEEP BREATHING EXERCISES WELL USE INCENTIVE SPIROMETER. ABD DSGS CDI, ABD BINDER IN PLACE. HYPOACTIVE BOWEL SOUNDS HEARD X4 QUADS. VOIDS IN URINAL, DARK FELECIA URINE. NO PERIPHERAL EDEMA, PULSES PALPABLE. KNEE HIGH REGINALD HOSE ON. IV IN LFA, SITE BENIGN, D5LR INFUSING AT 75 ML/RH. OVENS SUPERVISOR SHOWS AFIB, HR 90'S. DENIES NEEDS AT THIS TIME. CALL RIOS IN REACH.
--- NOTE | 2019-09-21 21:45 | NUR ---
RESTORIL 30 MG PO GIVEN FOR SLEEP ORDERED. PATIENT REPOISITIONES SELF IN BED.
--- NOTE | 2019-09-21 23:45 | NUR ---
RESTING WITH EYES CLOSED. RESP NO-LABORED. O2 SAT 99% AFIB ON MONITOR, HR 70'S-80'S.
[2019-09-22] VITALS (12 sets, daily range): BP systolic 119–162; BP diastolic 66–103
--- NOTE | 2019-09-22 02:04 | NUR ---
SLEEPING SOUNDLY. RESP NON-LABORED. VSS. AFIB ON MONITOR WITH OCC PVC'S.
--- NOTE | 2019-09-22 02:55 | NUR ---
PATIENT SITTING AT SIDE OF BED ON ROUNDS. SLT CONFUSED BUT EASILY REORIENTED. PATIEN HAD BEEN INCONTINENT OF URINE. AMBULATED WITH ASSIST AROUND BED TO RECLINER. EXERTIONAL WHEEZES NOTED, RT CALLED FOR NEB RX.
--- NOTE | 2019-09-22 04:05 | NUR ---
SLEEPING IN RECLINER WITH LEGS ELEVATED. IV INFUSING WITHOUT INCIDENT. AFIB ON MONITOR WITH OCC PVC'S.
--- NOTE | 2019-09-22 06:00 | NUR ---
RESTING WITH EYES CLOSED IN RECLINER. VSS. RESP NON-LABORED. AFIB ON MONITOR.
--- NOTE | 2019-09-22 06:00 | NUR ---
RESTLESS AT TIMES. PROPOFAL CONTINUES AT 60 MCG/KG/MIN.
--- NOTE | 2019-09-22 07:50 | NUR ---
Dr Molina at bedside to assess pt and discuss plan of care
--- NOTE | 2019-09-22 08:00 | NUR ---
pt awake in recliner; no apparent distress noted; assessment completed at this time; pt alert and oriented; admits to abd pain rating 8/10; will medicate; no n/v noted; resp even and unlabored; lungs clear/ faint wheeze bilat base; skin color wnl; o2 per nc; insole channeler cough noted; IS at bedside/ pt encouraged to use q1 hr x10 reps while awake; hr irreg; strong pulses; no edema noted; afib on monitor; bilat quinten hose intact; abd firm/ distended with bs hypoactive; no bm noted per health underwriter; pt admits to passing flatus; pt voiding without complication; urinal at bedside; #22 to lfa patent with ivf infusing without complication; no redness or edema noted at site; dressing to abd changed; mayela intact to midline incision and lap incisions x3; plan of care/ meds explained; call light within reach; will continue to monitor
--- NOTE | 2019-09-22 08:03 | NUR ---
awake in recliner; complaints of abd pain rating 8/10; medicated as per orders; declined breakfast at this time; will leave at bedside; afib on monitor; will continue to monitor
--- NOTE | 2019-09-22 08:08 | NUR ---
Dr Bajwa present at bedside to assess pt and discuss plan of care
--- NOTE | 2019-09-22 10:11 | NUR ---
awake in recliner; no apparent distress noted; resting with eyes closed; iv patent; no redness or edema noted at site; afib on monitor; will continue to monitor
--- NOTE | 2019-09-22 12:20 | NUR ---
awake in recliner; no apparent distress noted; afib on monitor; iv intact and patent; no redness or edema noted at site; call light within reach; will continue to monitor
--- NOTE | 2019-09-22 13:50 | NUR ---
awake in recliner; pt admits to pain rating 9/10; medicated; pt admits to taking pain meds for over 30 yrs; afib on monitor; deny additional needs; call light within reach; will continue to monitor
--- NOTE | 2019-09-22 14:30 | NUR ---
awake in recliner; no apparent distress noted; afib on monitor; call light within reach; will continue to monitor
--- NOTE | 2019-09-22 15:45 | NUR ---
PT at bedside; pt assisted to bed per PT
--- NOTE | 2019-09-22 16:05 | NUR ---
report called to Gorge Cummins RN
--- NOTE | 2019-09-22 16:17 | NUR ---
PT WAS SEEN TODAY FOR THEREX AND THER DYNAMIC ACTIVITIES. HE WAS INSTRUCTED TO PERFORM LE STRENGTHENING EX WHICH INCLUDES LAQ X 10 SH X 10 REPS ON B LE; SEATED CALF RAISES X 10 REPS X 3 SETS; SEATED LEG PILLOW SQUEEZE X 7 SH X 3 SETS. PT WAS ENCOURAGED TO COUNT SOFTLY TO PREVENT VALSALVA. HE WAS ALSO GIVEN REST PERIODS NEEDED. HE DEMONSTRATED DYSPNEA ON EXERTION WHICH RESOLVED QUICKLY. HE ALSO CONSTANTLY REPORTED PAIN ON L LOWER QUADRANT OF ABDOMEN. HE WAS GIVEN MIN A TO SIT>STAND AND VCS FOR HAND PLACEMENT. HE THEN AMBULATED FROM RECLINER TO THE SIDE OF THE BED TO SIT DOWN, AGAIN, WITH COMPLAINTS OF PAIN ON ABDOMEN. PT WAS ASSISTED (MIN A) TO LAY DOWN IN THE BED. NO ADVERSE REACTIONS NOTED OR REPORTED AT THE END OF TX. AMPAC SCORE: 14 POINTS
--- NOTE | 2019-09-22 16:46 | NUR ---
pt transferred to med surg tele room 270 via wc accompanied by staff in stable condition; spouse with pt; all belongings sent with spouse; update provided to Gorge Cummins RN
--- NOTE | 2019-09-22 16:50 | NUR ---
PT TO ICU BED 270 VIA WHEELCHAIR. PT ASSISTED TO BED WITH MINIMAL ASSISTANCE. PT IS ALERT AND ORIENTED X3. RESP ARE EVEN AND UNLABORED. VSS.ORIENTED TO ROOM AND UNIT. CALL LIGHT IN REACH. WILL CONTINUE TO MONITOR.
--- NOTE | 2019-09-22 19:33 | NUR ---
PT C/O INCREASE SOB. HOB ELEVATATED. RT NOTIFIED BY NURSE ON PRIOR SHIFT. RT NOT ABLE TO ADMINISTER NEB TX AT THIS TIME. NEB ADMINISTERED BY CREWMAN MAIN BATTLE TANK. HR 117, RR 26. PT DIAPHORETIC, WET WASH CLOTH PROVIDED. CREWMAN MAIN BATTLE TANK REMAINS IN ROOM WITH PT FOR NEB TX. WILL CONTINUE TO MONITOR.
--- NOTE | 2019-09-22 19:42 | NUR ---
PT TOLERATED NEB TX WELL. HR 98 RR 22. PT A LITTLE MORE RELAXED. REMAINS AT BEDSIDE. CALL LIGHT WITHIN REACH. WILL CONTINUE TO MONITOR.
--- NOTE | 2019-09-22 23:56 | NUR ---
PT OOB IN RECLINEER. C/O HEADACHE 8-10. MEDICATED AT THIS TIME. PT DENIES ANY PAIN OR SOB. FAN PROVIDED. PT DENIES ANY OTHER WANTS OR NEEDS. CALL LIGHT WITHIN REACH. WILL CONTINUE TO MONITOR.
--- NOTE | 2019-09-23 02:10 | NUR ---
PT MEDICATED FOR GENERALIZED PAIN 8-10. ASSISTED PT OUT OF RECLINER AND BACK INTO BED. NO APPARENT RESPIRATORY DISTRESS NOTED. CALL LIGHT WITHIN REACH. WILL CONTINUE TO MONITOR.
[2019-09-23 03:40] VITALS: BP 123/77
--- NOTE | 2019-09-23 05:35 | NUR ---
PT MEDICATED FOR GENERALIZED PAIN 8-10. ASSISTED PT TO BSC. CALL LIGHT WITHIN REACH. PT INSTRUCTED TO CALL WHEN FINISHED. WILL CONTINUE TO MONITOR.
[2019-09-23 06:00] LABS: HEMOGLOBIN 12.8 g/dl (14.0-18.0); MEAN CORPUSCULAR HGB 29.3 pG CALC (26.0-32.0); MEAN CORPUSCULAR HGB CONC 33.7 g/dL CAL (32.0-36.0); RED BLOOD COUNT 4.37 mill/uL (4.70-6.10)
[2019-09-23 06:23] LABS: ALBUMIN 2.7 g/dL (3.2-5.0); ALKALINE PHOSPHATASE 57 u/l (38-126); ANION GAP 7 (6-22 (CALC)); BILIRUBIN, TOTAL 1.9 mg/dL (0.0-1.4); BUN 6 mg/dL (8-23); BUN/CREATININE RATIO 9 (12-20 (CALC)); CARBON DIOXIDE 34 mmol/l (22-30); CHLORIDE 95 mmol/l (95-108); CREATININE 0.6 mg/dL (0.7-1.3); GFR > 60 ML/MIN (>=60 (CALC)); GFR FOR AFR.AMER. > 60 ML/MIN (>=60 (CALC)); MAGNESIUM 1.6 mg/dL (1.6-2.3); POTASSIUM 3.3 mmol/l (3.5-5.1); SGOT/AST 21 u/l (19-48); SODIUM 133 mmol/l (137-146); TOTAL PROTEIN 5.2 g/dL (6.3-8.2)
[2019-09-23 07:42] VITALS: BP 122/93
--- NOTE | 2019-09-23 07:42 | NUR ---
ASSESSMENT IS COMPLETED: IV SITE IS FREE FROM REDNESS OR EDEMA. HR IS REG,PULSES ARE STRONG X4, ABD IS SOFT WITH ACTIVE BS. ABDOMINAL BINDER IN PLACE. NO DISTRESS NOTED. BREATH SOUNDS ARE CLEAR BILATERALLY, CONTINUE TO OBSERVE AND MONITOR. TELE MONITOR IN PLACE.
--- NOTE | 2019-09-23 12:15 | NUR ---
PT IS RELAXING IN BED WITH NO DISTRESS NOTED. IV SITE IS FREE FROM REDNESS OR EDEMA. CONTINUE TO OSBERVE AND MONITOR.
--- NOTE | 2019-09-23 13:11 | NUR ---
Upon entering therapist instructed patient in transferring from supine to EOB to perform gait training and therex however patient refused to transfer from supine to sit reporting he finally "felt in sync" and he did not want to get out of sync again by sitting up or standing for gait training. He was instructed to perform SAQ 2x10 and ankle pumps 2x10 and he complied. Upon a second attempt to assist patient OOB he again stated he did not want to do anything to get "out of sync" ampac=14
[2019-09-23 15:25] VITALS: BP 120/70
--- NOTE | 2019-09-23 16:15 | NUR ---
PT HAS BEEN VISITING WITH SPOUSE. NO DISTRESS NOTED. IV SITE IS FREE FROM REDNESS OR EDEMA.
--- NOTE | 2019-09-23 18:24 | NUR ---
PT INQUIRED IF HE WAS GETTING A 2 ML OF LIQUID DILAUDID. EXPLAINED THAT NO HE WAS GETTIGN A REDUCED AMOUNT. BUT IT IS STRONGER THAN THE PILL. CONFIRMED THAT HE TOOK TOO MUCH AND WAS VERY CONFUSED YESTERDAY. NORE CLEARER IN THOUGHT TODAY.
--- NOTE | 2019-09-23 19:02 | NUR ---
REPORT FROM MITESH ESPARZA. PT SITTING UP IN BED. ALERT AND ORIENTED. PT C/O PAIN MEDICATIONS ARE NOT WORKING DUE TO GETTING REDUCED AMOUNT OF PAIN MEDICATIONS. MOLD ENGRAVER ATTEMPTED TO EXPLAIN TO PT THAT PAIN MEDICATION DOSE WAS SAME RECEIVING BEFORE. PT REFUSING TO HEAR WHAT MOLD ENGRAVER TRYING TO EXPLAIN. PT STATES HE TAKES MUCH LARGER DOSE OF SAME MEDICATION AT HOME. AT BEDSIDE STATING HE TAKES OXYCODONE 10MG AT HOME. PT VERY DISGRUNTLED. ABD NOTED TO BED DISTENDED AND FIRM, DRESSING CDI. HYPOACTIVE BOWEL SOUNDS NOTED IN ALL 4 QUADRANTS. IV SITE APPEARS HEALTHY. PT DENIES ANY CURRENT WANTS OR NEEDS. DISCUSSED POC. PT VERBALIZED UNDERSTANDING. CALL LIGHT WITHIN REACH. WILL CONTINUE TO MONITOR.
[2019-09-23 19:30] VITALS: BP 151/93
--- NOTE | 2019-09-23 20:37 | NUR ---
PT MEDICATED FOR ABD PAIN. ENCOURAGED PT TO REAPPLY ABD BINDER, PT REFUSED. DOCKETING SPECIALIST OFFER TO AMBULATE IN BHATT WITH PT, ALSO REFUSED. PT STILL VERY DISGRUNTLED, STATING HE CANNOT TASTE THE PAIN MEDICATION. PT DENIES ANY OTHER WANTS OR NEEDS. CALL LIGHT WITHIN REACH. WILL CONTINUE TO MONITOR.
[2019-09-23 23:42] VITALS: BP 115/73
--- NOTE | 2019-09-24 00:08 | NUR ---
PT RESTING IN BED. NO APPARENT DISTRESS NOTED. CALL LIGHT WITHIN REACH. WILL CONTINUE TO MONITOR.
[2019-09-24 03:44] VITALS: BP 123/90
--- NOTE | 2019-09-24 04:55 | NUR ---
PT RESTING IN BED. NO APPARENT DISTRESS NOTED. CALL LIGHT WITHIN REACH. WILL CONTINUE TO MONITOR.
[2019-09-24 05:36] LABS: HEMATOCRIT 39.1 % (39.0-50.0); MEAN CELL VOLUME 86.9 fL CALC (80.0-100.0); MEAN CORPUSCULAR HGB 28.9 pG CALC (26.0-32.0); MEAN CORPUSCULAR HGB CONC 33.2 g/dL CAL (32.0-36.0); RED BLOOD COUNT 4.5 mill/uL (4.70-6.10); RED CELL DISTRI WIDTH 13.1 % (11.5-15.5)
[2019-09-24 06:06] LABS: ANION GAP 6 (6-22 (CALC)); BUN 7 mg/dL (8-23); BUN/CREATININE RATIO 10 (12-20 (CALC)); CARBON DIOXIDE 34 mmol/l (22-30); CHLORIDE 95 mmol/l (95-108); CREATININE 0.6 mg/dL (0.7-1.3); GFR > 60 ML/MIN (>=60 (CALC)); GFR FOR AFR.AMER. > 60 ML/MIN (>=60 (CALC)); POTASSIUM 3.3 mmol/l (3.5-5.1); SODIUM 132 mmol/l (137-146)
--- NOTE | 2019-09-24 08:00 | NUR ---
PT HAS BEEN RELAXING IN BED WITH NO DISTRESS NOTED. FAMILY IN THE ROOM.
[2019-09-24 09:00] VITALS: BP 148/95
--- NOTE | 2019-09-24 09:00 | NUR ---
ASSESSMENT IS COMPLETED: IV SITE IS FREE FROM REDNESS OR EDEMA. HR IS REG,PULSES ARE STRONG X4, ABD IS SOFT WITH ACTIVE BS. BREATH SOUNDS ARE CLEAR BILATERALLY. DRESSING ON ABD IS CDI. TELE MONITOR IN PLACE. CONTINUE TO OSBERVE AND MONITOR.
[2019-09-24 10:46] VITALS: BP 140/87
--- NOTE | 2019-09-24 12:45 | NUR ---
PT HAS BEEN RELAXING IN THE ROOM. IV SITE IS FREE FROM REDNESS OR EDEMA. CONTINUE TO OSEBRVE AND MONITOR.
[2019-09-24 15:25] VITALS: BP 129/87
--- NOTE | 2019-09-24 16:45 | NUR ---
PT HAS BEEN IN THE CHAIR. NO DISTRESS NOTED. IV SITE IS FREE FROM REDNESS OR EDEMA. CONTINUE TO OSEBRVE AND MONITOR.
--- NOTE | 2019-09-24 17:07 | NUR ---
therapist made an A.M. attempt and a P.M. attempt however patient refused to participate reporting he didnt feel well enough to get OOB.
[2019-09-24 19:00] VITALS: BP 133/88
--- NOTE | 2019-09-24 19:01 | NUR ---
REPORT FROM MITESH ESPARZA. PT RESTING IN BED. ALERT AND ORIENTED. NO APPARENT DISTRESS NOTED. 02 @ 2L/M VIA NC. PT C/O GENERALIZED PAIN. REPORTS BM TODAY. INCISIONS WITH YAYA, DRESSING CDI. DISCUSSED POC. PT VERBALIZED UNDERSTANDING. WILL MEDICATED ORDERED FOR PAIN. PT REFUSED TO AMBULATE IN HALLS AT THIS TIME. PT DENIES ANY OTHER WANTS OR NEEDS. CALL LIGHT WITHIN REACH. WILL CONTINUE TO MONITOR.
--- NOTE | 2019-09-24 20:45 | NUR ---
PT MEDICATED ORDERED. MEDICATED FOR GENERALIZED PAIN 8-10. NO APPARENT DISTRESS NOTED. CALL LIGHT WITHIN REACH. WILL CONTINUE TO MONITOR.
[2019-09-24 23:25] VITALS: BP 151/96
--- NOTE | 2019-09-24 23:29 | NUR ---
PT MEDICATED FOR GENERALIZED PAIN 8-10. NO APPARENT DISTRESS NOTED. PT DENIES ANY OTHER WANTS OR NEEDS. URINAL EMPTIED OF 200ML DARK YELLOW URINE. CALL LIGHT WITHIN REACH. WILL CONTINUE TO MONITOR.
--- NOTE | 2019-09-25 03:20 | NUR ---
PT RESTING IN BED. NO APPARENT DISTRESS NOTED. CALL LIGHT WITHIN REACH. WILL CONTINUE TO MONITOR.
[2019-09-25 03:35] VITALS: BP 139/91
[2019-09-25 05:05] LABS: ANION GAP 7 (6-22 (CALC)); BUN 9 mg/dL (8-23); BUN/CREATININE RATIO 14 (12-20 (CALC)); CARBON DIOXIDE 32 mmol/l (22-30); CHLORIDE 97 mmol/l (95-108); CREATININE 0.6 mg/dL (0.7-1.3); GFR > 60 ML/MIN (>=60 (CALC)); GFR FOR AFR.AMER. > 60 ML/MIN (>=60 (CALC)); POTASSIUM 3.6 mmol/l (3.5-5.1); SODIUM 133 mmol/l (137-146)
[2019-09-25 07:48] VITALS: BP 150/99
--- NOTE | 2019-09-25 07:48 | NUR ---
PT RESTING IN BED, NO SIGNS OF DISTRESS NOTED, RESP EVEN AND UNLABORED. PT ALERT AND ORIENTED X3, DISCUSSED POC, DRESSING TO ABD CDI, PT ON 02 4L, ASSESSMENT COMPLETED, CALL LIGHT IN REACH,CONTINUE TO MONITOR.
--- NOTE | 2019-09-25 08:13 | NUR ---
PT RESTING IN BED, REQUESTING TO SIT ON BSC, TITRATED 02 DOWN TO RA, PT SATURATION ON RA 88% AFTER SITTING ON BSC ASSISTED BACK TO BED PT SOB ON EXERTION, NOTED WHEEZES. SPO2 87% REPLACED O2 AT 2L SPO2 90% PT TITRATED TO 3.5L PT 93%. MD AND CASE MANAGEMENT MADE AWARE. CALL LIGHT IN REACH,CONTINUE TO MONITOR.
[2019-09-25 10:50] VITALS: BP 124/66
--- NOTE | 2019-09-25 13:58 | NUR ---
PT RESTING IN BED, C/O PAIN SEVERE, REQUESTING 2 PERCOCET INFORMED PT THAT ORDER IS FOR ONE TABLET, PT MEDICATED WITH DILAUDID. CALL LIGHT IN REACH,CONTINUE TO MONITOR, AT BEDSIDE.
--- NOTE | 2019-09-25 15:10 | NUR ---
ABHINAV ARRIVED WITH PT OXYGEN, DISCUSSED DISCHARGE INSTRUCTIONS WITH PT AND , MEDICATION CALLED IN TO PHARMACY, IV REMOVED CATHETER INTACT, PT GETTING DRESSED.
--- NOTE | 2019-09-25 15:55 | NUR ---
Discharge instructions given. Patient verbalizes understanding of same. Discharged in stable condition via to Home with spouse. All belongings sent with pt.
[2019-10-21] MEDS ORDERED: HYDROCODONE/ACE1 TAB PO (10:02)
[2019-10-21] MEDS ORDERED: METOPROL TAR25 MG PO (11:03)
[2019-11-17] MEDS ORDERED: HYDROCO/APAP1 TA9 PO (09:20)
[2019-12-23] MEDS ORDERED: HYDROCODONE/ACE1 TAB PO (10:24)
== END 2019-09-25 15:55 | disposition home or self-care (01) | DRG 329 ==
LOC: ED 00:59 → ED-I 06:43 → ED 07:01 → ED-I 07:02 → MS2 09:13 → ICU 13:09 → MS2 13:10 → ICU 09-18 23:08 → MS2 09-22 14:58
PROVIDERS: Family Medicine; Internal Medicine; ADMIT Surgery; ATTEND Surgery
PROC: 0DQV0ZZ Repair Mesentery, Open Approach (ICD-10-PCS; principal; 2019-09-18)
PROC: 0DQ80ZZ Repair Small Intestine, Open Approach (ICD-10-PCS; 2019-09-18)
PROC: 0DJV4ZZ Inspection of Mesentery, Percutaneous Endoscopic Approach (ICD-10-PCS; 2019-09-18)
DX: K46.0 Unspecified abdominal hernia with obstruction, without gangrene (principal); J18.9 Pneumonia, unspecified organism; I48.20 Chronic atrial fibrillation, unspecified; J44.0 Chronic obstructive pulmonary disease with (acute) lower respiratory infection; K66.0 Peritoneal adhesions (postprocedural) (postinfection); I12.9 Hypertensive chronic kidney disease with stage 1 through stage 4 chronic kidney disease, or unspecified chronic kidney disease; N18.9 Chronic kidney disease, unspecified; R09.02 Hypoxemia; F17.210 Nicotine dependence, cigarettes, uncomplicated; Z85.118 Personal history of other malignant neoplasm of bronchus and lung; Z79.01 Long term (current) use of anticoagulants; Z11.59 Encounter for screening for other viral diseases
CPT/HCPCS: J0131; J0282; J1650; Q9967; S0164

== ENCOUNTER 2019-11-03 06:24 | Day surgery (SDC) | payer MEDICARE ==
[~2019-11-03] VITALS: Ht 180.3 cm; Wt 71.7 kg
[~2019-11-03 06:24] MED LIST changes: +HYDROCODONE/ACE1 TAB PO; +METOPROL TAR25 MG PO
[2019-11-03 08:19] VITALS: BP 123/88
[2019-11-17] MEDS ORDERED: HYDROCO/APAP1 TA9 PO (09:20)
[2019-12-23] MEDS ORDERED: HYDROCODONE/ACE1 TAB PO (10:24)
== END 2019-11-03 08:40 | disposition home or self-care (01) ==
LOC: ORM 06:24
PROVIDERS: ATTEND Anesthesiology Pain Medicine
DX: M54.5 Low back pain (principal); Z01.84 Encounter for antibody response examination

== ENCOUNTER 2019-11-24 06:27 | Day surgery (SDC) | payer MEDICARE ==
[~2019-11-24] VITALS: Ht 180.3 cm; Wt 73.5 kg
[~2019-11-24 06:27] MED LIST changes: +HYDROCO/APAP1 TA9 PO
[2019-11-24] MEDS ORDERED: HYDROCODONE/ACE1 TAB PO ×2 (08:03→08:08)
[2019-11-24 08:22] VITALS: BP 121/84
[2019-12-23] MEDS ORDERED: HYDROCODONE/ACE1 TAB PO (10:24)
== END 2019-11-24 08:36 | disposition home or self-care (01) ==
LOC: ORM 06:27
PROVIDERS: ATTEND Anesthesiology Pain Medicine
DX: M54.2 Cervicalgia (principal); Z01.84 Encounter for antibody response examination

== ENCOUNTER 2020-06-12 20:18 | Inpatient (IN) | payer MEDICARE ==
[~2020-06-12] VITALS: Ht 180.3 cm; Wt 72.0 kg
--- NOTE | 2020-06-12 20:50 | NUR ---
TO ROOM BY WC
[2020-06-12] MEDS ORDERED: FOLIC ACID1 MG PO (21:11)
[2020-06-12] MEDS ORDERED: PERCOCET 10/31 COMBO PO (21:13)
[2020-06-12] MEDS ORDERED: CYCLOBENZAPRINE10 MG PO (21:18)
--- NOTE | 2020-06-12 21:27 | NUR ---
BREATHING TREATMENT GIVEN.
[2020-06-12 21:32] LABS: ALKALINE PHOSPHATASE 80 u/l (38-126); BILIRUBIN, TOTAL 1.2 mg/dL (0.0-1.4); BUN 12 mg/dL (8-23); BUN/CREATININE RATIO 17 (12-20 (CALC)); CARBON DIOXIDE 31 mmol/l (22-30); CHLORIDE 97 mmol/l (95-108); CREATININE 0.7 mg/dL (0.7-1.3); GFR > 60 ML/MIN (>=60 (CALC)); GFR FOR AFR.AMER. > 60 ML/MIN (>=60 (CALC)); SGOT/AST 23 u/l (19-48); SODIUM 134 mmol/l (137-146)
[2020-06-12 21:33] LABS: ALBUMIN 4.3 g/dL (3.2-5.0); ANION GAP 11 (6-22 (CALC)); POTASSIUM 4.6 mmol/l (3.5-5.1); TOTAL PROTEIN 8.2 g/dL (6.3-8.2)
[2020-06-12 21:43] LABS: HEMATOCRIT 41.7 % (39.0-50.0); IMMATURE GRANULOCYTES 0.7 % (0.0-5.0); MEAN CELL VOLUME 87.2 fL CALC (80.0-100.0); MEAN CORPUSCULAR HGB 29.3 pG CALC (26.0-32.0); MEAN CORPUSCULAR HGB CONC 33.6 g/dL CAL (32.0-36.0); NEUT# 12.55 thou/uL (1.82-7.42); RED BLOOD COUNT 4.78 mill/uL (4.70-6.10); RED CELL DISTRI WIDTH 13.6 % (11.5-15.5)
[2020-06-12 21:44] LABS: MYOGLOBIN 49 ng/mL (0 - 121)
--- NOTE | 2020-06-12 22:00 | NUR ---
RESTING QUIETLY. AWAITING TEST RESULTS.
--- NOTE | 2020-06-12 23:00 | NUR ---
AWAITING TEST RESULTS AND DISPO.
--- NOTE | 2020-06-13 00:13 | NUR ---
Admission Note Report Given to: PATRICE SOUTH Transported by: Wheelchair X Stretcher Transported with: X Nurse Transporter X Patent IV O2 X Trimming Machine Operator Location: ICU X MS2
[2020-06-13 00:14] VITALS: BP 143/71
--- NOTE | 2020-06-13 00:30 | NUR ---
PT WAS ADMITTED WITH DIAGNOSIS OF COPD EXACERBATION. PT IS ALERT AND ORIENTED AND ABLE TO MAKE NEEDS KNOWN. PT SPEAKS AUSTRALIAN AND CAN UNDERSTAND VERBAL COMMANDS. HEARING AND VISION IS ADEQUATE. RESPIRATIONS IS EVEN AND NON LABORED. HEART RHYTHM PACED PER TELEMETRY AT 70. PT ABDOMEN IS SOFT TO OTUCH AND PT STATES HE HAD A BOWEL MOVEMENT YESTERDAT. CONTINENT OF B/B AND AMBULATORY WITH NO ASSIST NEEDED. IV SITE TO RAC REMOVED DUE TO DISCOMFORT AND 20G PLACED IN RIGHT FORARM X 1 ATTEMPT AND NO COMPLICATIONS NOTED. PT AMBULATES WITH CANE AT HOME. OXYGEN THERAPY IN PLACE AT 2LNC. NO SKIN CONCERNS NOTED. CALL LIGHT IS WITHIN REACH AND BEDSIDE EQUIPMENT EXPLAINED TO PT. BED IN LOW POSITION AND URINAL AT BEDSIDE WITHIN REACH AND WILL CONTINUE TO OBSERVE.
[2020-06-13 00:52] LABS: URINE BILIRUBIN - DIPSTICK NEGATIVE (NEGATIVE); URINE BLOOD DIPSTICK NEGATIVE (NEGATIVE); URINE COLOR YELLOW; URINE GLUCOSE - DIPSTICK NEGATIVE (NEGATIVE); URINE KETONE NEGATIVE (NEGATIVE); URINE LEUK ESTERASE NEGATIVE (NEGATIVE); URINE NITRITE - DIPSTICK NEGATIVE (Negative); URINE PROTEIN - DIPSTICK NEGATIVE (NEG-TRACE); URINE SPECIFIC GRAVITY 1.025
[2020-06-13 04:00] VITALS: BP 103/65
[2020-06-13 05:05] LABS: HEMOGLOBIN 13.3 g/dl (14.0-18.0); IMMATURE GRANULOCYTES 0.6 % (0.0-5.0); MEAN CELL VOLUME 88.6 fL CALC (80.0-100.0); MEAN CORPUSCULAR HGB 28.7 pG CALC (26.0-32.0); MEAN CORPUSCULAR HGB CONC 32.4 g/dL CAL (32.0-36.0); NEUT# 14.97 thou/uL (1.82-7.42); RED BLOOD COUNT 4.63 mill/uL (4.70-6.10); RED CELL DISTRI WIDTH 13.6 % (11.5-15.5)
[2020-06-13 05:28] LABS: ALBUMIN 3.8 g/dL (3.2-5.0); ALKALINE PHOSPHATASE 76 u/l (38-126); BILIRUBIN, TOTAL 1.4 mg/dL (0.0-1.4); BUN 13 mg/dL (8-23); BUN/CREATININE RATIO 16 (12-20 (CALC)); C-REACTIVE PROTEIN 8.4 mg/dL (0-0.9); CARBON DIOXIDE 32 mmol/l (22-30); CHLORIDE 97 mmol/l (95-108); CREATININE 0.8 mg/dL (0.7-1.3); GFR > 60 ML/MIN (>=60 (CALC)); GFR FOR AFR.AMER. > 60 ML/MIN (>=60 (CALC)); SGOT/AST 21 u/l (19-48); SODIUM 134 mmol/l (137-146); TOTAL PROTEIN 7.3 g/dL (6.3-8.2)
[2020-06-13 05:32] LABS: ANION GAP 11 (6-22 (CALC)); POTASSIUM 5.5 mmol/l (3.5-5.1)
--- NOTE | 2020-06-13 06:45 | NUR ---
PT IN BED WITH EYES OPEN AND ABLE TO MAKE NEEDS KNOWN WITH NO DISTRESS NOTED. HOB ELEVATED AND CALL LIGHT WITHIN REACH. WILL CONTINUE TO OBSERVE.
--- NOTE | 2020-06-13 08:00 | NUR ---
PT LAYING IN BED. C/O BACK PAIN, GIVEN PRN MED FOR RELIEF.
[2020-06-13 08:40] VITALS: BP 97/58
--- NOTE | 2020-06-13 09:36 | NUR ---
PT SLEEPING BED AT THIS TIME. VS WNL. ON 2L OF VIA NC. APPEARS IN NO ACUTE DISTRESS. LUNG SOUNDS CLEAR. CONTINUE ON IV FLUIDS. SITE PATENT AND INTACT.
[2020-06-13 10:40] VITALS: BP 94/56
--- NOTE | 2020-06-13 12:30 | NUR ---
CALLED INTO PT'S ROOM TO LOOK AT IV SITE, OBSERVED IV DISLODGED FROM PT'S R FOREARM. INFORMED SHAUN CELESTIN, NEW IV TO BE PLACED.
--- NOTE | 2020-06-13 13:06 | NUR ---
NEW 20 G IV SITE PLACED TO THE RUE, ABOVE THE ANTECUBITAL. CLEAN AND INTACT.
[2020-06-13 15:04] VITALS: BP 116/80
--- NOTE | 2020-06-13 18:43 | NUR ---
PT ISLYING IN BED WATCHING TV. APPEARS IN GOOD SPIRITS. HYPERVERBAL. CONTINUES ON 2L OF 02.SATS AT 94-95%. DENIES SOB AND CHEST PAIN. IV SITE TO THE JOVANNY, PATENT. FLUIDS RUNNING AT 100ML/HR. CALL LIGHT PLACED WITHIN REACH.
[2020-06-13 19:00] VITALS: BP 134/71
--- NOTE | 2020-06-13 19:51 | NUR ---
PATIENT RESTING IN BED AT THIS TIME WITH O2 AROUND HIS NECK. PATIENT IS AWAKE ALERT AND ORIENTEDX3 AND ASKING FOR HIS PAIN MEDS. TOO EARLY FOR PAIN MEDS AT THIS TIME. WILL MEDICATE WHEN SCHEDULED. O2 SATS AT 92-93% ON ROOM AIR. TELE MONITOR IN PLACE. PATIENT STATES THAT HE HAS PRODUCTIVE COUGH WITH GREEN SPUTUM. LUNGS ARE DIMINISHED THROUGHOUT. IVF NS PATENT AND INFUSING VIA RIGHT UPPER ARM SITE AT 100CC/HR. SITE IS HEALTHY AT THIS TIME. ABD IS SOFT WITH ACTIVE BS. NO PERIPHERAL EDEMA NOTED. PULSE PALPABLE. ISOLATION FOR COVID AND INFLUEZA A IN NEG PRESSURE ROOM. SAFETY PRECAUTIONS REINFORCED. CALL LIGHT IN REACH, WILL CONT TO MONITOR.
--- NOTE | 2020-06-13 20:56 | NUR ---
PATIENT RESTING IN BED-HS MEDS WERE GIVEN. MEDICATED FOR PAIN WITH PERCOCET 10/325MG PO. INSTRUCTED PATIENT ON USE OF IS Q1H WHILE AWAKE IN REPS OF 10. PATIENT IS ABLE TO DEMONSTRATE PROPER USE OF THE DEVICE. ENCOURAGED PATIENT TO PRONE WHEN POSSIBLE TO PROMOTE RESP HEALING. VERBALIZES UNDERSTANDING. PROVIDED WITH HS SNACK OF PUDDING AND DRINK. SAFETY PRECAUTIONS REINFORCED. CALL LIGHT IN REACH. WILL CONT TO MONITOR.
--- NOTE | 2020-06-13 23:11 | NUR ---
PATIENT RESTING IN BED AT THIS TIME NOW WITH O2 VIA NASAL CANNULA AT 2LPM IN PLACE. ROCEPHIN HUNG AND INFUSING ORDERED VIA RIGHT UPPER ARM IV SITE. STATES SOME RELIEF FROM PAIN MED GIVEN EALIER. POSITIONED ON RIGHT SIDE. CALL LIGHT IN REACH. WILL CONT TO MONITOR.
[2020-06-14] VITALS (7 sets, daily range): BP systolic 94–141; BP diastolic 51–80
--- NOTE | 2020-06-14 00:31 | NUR ---
PATIENT RESTING IN BED AT THIS TIME-ASKING FOR PAIN MEDS-WAS JUST MEDICATED WITH TYLENOL SCHEDULED. TOO EARLY FOR PERCOCET-PATIENT WAS INFORMED. NO AVAILABLE UNTIL AFTER 0230. AZITHROMYCIN INFUSING ORDERED VIA RIGHT UPPER ARM IV SITE. O2 VIA NASAL CANNULA IN PLACE. TELE MONITOR IN PLACE. CALL LIGHT IN REACH. WILL CONT TO MONITOR.
--- NOTE | 2020-06-14 03:08 | NUR ---
PATIENT RESTING IN BED ON RIGHT SIDE WITH O2 VIA NASAL CANNULA AT 2LPM. C/O CHRONIC BACK PAIN 11/07-MEDICATED WITH PERCOCET 10/325MG PO. TELE MONITOR IN PLACE. IVF NS PATENT AND INFUSING AT 100CC/HR. CALL LIGHT IN REACH. WILL CONT TO MONITOR
--- NOTE | 2020-06-14 04:46 | NUR ---
PATIENT RESTING IN BED WITH O2 VIA NASAL CANNULA IN PLACE-POSITIONED ON LEFT SIDE WITH EYES CLOSED. RESPS ARE EVEN AND UNLABORED. TELE MONITOR IN PLACE-PACED 69. IVF NS PATENT AND INFUSING AT 100CC/HR. CALL LIGHT IN REACH. WILL CONT TO MONITOR.
[2020-06-14 05:23] LABS: HEMATOCRIT 36.3 % (39.0-50.0); HEMOGLOBIN 11.6 g/dl (14.0-18.0); MEAN CELL VOLUME 87.9 fL CALC (80.0-100.0); MEAN CORPUSCULAR HGB 28.1 pG CALC (26.0-32.0); RED BLOOD COUNT 4.13 mill/uL (4.70-6.10); RED CELL DISTRI WIDTH 13.4 % (11.5-15.5)
[2020-06-14 05:43] LABS: ANION GAP 9 (6-22 (CALC)); BUN 17 mg/dL (8-23); BUN/CREATININE RATIO 28 (12-20 (CALC)); CARBON DIOXIDE 28 mmol/l (22-30); CHLORIDE 102 mmol/l (95-108); CREATININE 0.6 mg/dL (0.7-1.3); GFR > 60 ML/MIN (>=60 (CALC)); GFR FOR AFR.AMER. > 60 ML/MIN (>=60 (CALC)); MAGNESIUM 1.7 mg/dL (1.6-2.3); POTASSIUM 4.6 mmol/l (3.5-5.1); SODIUM 135 mmol/l (137-146)
--- NOTE | 2020-06-14 06:21 | NUR ---
PATIENT APPEARS SLEEPING AT THIS TIME POSITIONED ON LEFT SIDE. O2 VIA NASAL CANNULA IN PLACE AT 2LPM. TELE MONITOR IN PLACE. IVF PATENT AND INFUSING VIA RIGHT UPPER ARM SITE AT 100CC/HR. CALL LIGHT IN REACH. WILL CONT TO MONITOR.
--- NOTE | 2020-06-14 08:48 | NUR ---
AWAKE AND ALERT THIS MORNING. UP EATING BREAKFAST. VS ARE WNL. REQUESTED AND GIVEN PRN PAIN MED R/T CHRONIC BACK PAIN. CONTINUES ON IV FLUIDS. LUNG SOUNDS CTA, DIMINISHED AT BASES. NO COUGHING HEARD.
--- NOTE | 2020-06-14 10:30 | NUR ---
PTTRANSPORTED TO CT R/T HX OF LUNG REMOVAL TO THE RIGHT LOWER LOBE.
--- NOTE | 2020-06-14 10:32 | NUR ---
PT TRANSPORTED TO CT R/T RIGHT LOWER LOBE OF THE LUNG.
--- NOTE | 2020-06-14 11:20 | NUR ---
PT BACK FROM CT. 20 G ABOVE THE RUE, DISLODGED. NEW IV SITE TO THE LAC, CLEAN AND INTACT. PROVIDER MADE AWARE. CONTINUES ON IV FLUIDS.
--- NOTE | 2020-06-14 17:07 | NUR ---
PT CONTINUES ON VIA NC. IV IS MAINTAINED WITH CONTINUOUS FLUIDS.PT LAYING IN BED, WATCHING TV. INCENTIVE SPIROMETER IN USE.
--- NOTE | 2020-06-14 19:33 | NUR ---
190 SBAR REPORT RECEIVED FROM NURSE KENNEDY.
--- NOTE | 2020-06-14 20:44 | NUR ---
PATIENT ALERT AND ORIENTED. C/O BACK PAIN 8 ON NUMERIC SCALE 0-10, MEDICATED WITH PERCOCET. PRODUCTIVE COUGH, PONCE SPUTUM NOTED. NO DISTRESS NOTED. CALL LIGHT WITHIN REACH.
--- NOTE | 2020-06-15 00:02 | NUR ---
RESTING QUIETLY IN BED. IV ANTIBIOTICS ADMINISTERED. DENIES PAIN AT THIS TIME, NO CONCERNS EXPRESSED. CALL LIGHT WITHIN REACH.
[2020-06-15 04:30] VITALS: BP 142/80
--- NOTE | 2020-06-15 05:01 | NUR ---
RESTING QUIETLY IN BED. VERBALIZES PAIN IS IMPROVING. NO DISTRESS NOTED. CALL LIGHT WITHIN REACH.
[2020-06-15 05:40] LABS: HEMATOCRIT 36.1 % (39.0-50.0); HEMOGLOBIN 11.5 g/dl (14.0-18.0); IMMATURE GRANULOCYTES 0.5 % (0.0-5.0); MEAN CELL VOLUME 88.9 fL CALC (80.0-100.0); MEAN CORPUSCULAR HGB 28.3 pG CALC (26.0-32.0); MEAN CORPUSCULAR HGB CONC 31.9 g/dL CAL (32.0-36.0); NEUT# 6.37 thou/uL (1.82-7.42); RED BLOOD COUNT 4.06 mill/uL (4.70-6.10); RED CELL DISTRI WIDTH 13.5 % (11.5-15.5)
[2020-06-15 05:58] LABS: ALBUMIN 3.2 g/dL (3.2-5.0); ALKALINE PHOSPHATASE 58 u/l (38-126); ANION GAP 8 (6-22 (CALC)); BUN 13 mg/dL (8-23); BUN/CREATININE RATIO 23 (12-20 (CALC)); CARBON DIOXIDE 29 mmol/l (22-30); CHLORIDE 102 mmol/l (95-108); CREATININE 0.6 mg/dL (0.7-1.3); GFR > 60 ML/MIN (>=60 (CALC)); GFR FOR AFR.AMER. > 60 ML/MIN (>=60 (CALC)); POTASSIUM 4.4 mmol/l (3.5-5.1); SGOT/AST 16 u/l (19-48); SODIUM 135 mmol/l (137-146); TOTAL PROTEIN 6.2 g/dL (6.3-8.2)
[2020-06-15 06:01] LABS: BILIRUBIN, TOTAL 0.6 mg/dL (0.0-1.4)
--- NOTE | 2020-06-15 07:00 | NUR ---
PT REPORT RECEIVED FROM NIGHT NURSELAURA.
[2020-06-15 08:00] VITALS: BP 146/86
--- NOTE | 2020-06-15 08:00 | NUR ---
PT WAS FOUND SITIING IN BEDSIDE CHAIR EATING BREAKFAST;PT IS A&O X3;VS AND ASSESSMENT WERE COMPLETED;HEART SOUNDS WERE REGULAR IN RATE AND RHYTHM;LUNG SOUNDS WERE CLEAR AND DIMINISHED IN THE LOWER LOBES BILATERALLY;RESPIRATIONS ARE EVEN AND UNLABORED ON 2L O2 VIA NC;TELE IS IN PLACE;#20G IV IN LAC IS RUNNING NS@100 ML/HR;IV SITE IS PATENT AND FREE OF COMPLICATIONS;SAFETY PRECAUTIONS IN PLACE;CALL LIGHT WITHIN REACH;BED IN LOWEST POSITION;WILL CONTINUE TO MONITOR.
[2020-06-15 10:47] VITALS: BP 138/86
[2020-06-15] MEDS ORDERED: LEVAQUIN750 M1 PO (12:05)
[2020-06-15] MEDS ORDERED: MEDDOSEPAK PO (12:06)
[2020-06-15] MEDS ORDERED: TAM75CAP PO (12:08)
--- NOTE | 2020-06-15 12:50 | NUR ---
PT WAS GIVEN DISCHARGE PACKET;INSTRUCTIONS WERE GIVEN ALONG WITH PRESCRIPTIONS TO PT;PT HAD NO QUESTIONS OR CONCERNS;SIGNATURE WAS OBTAINED;IV WAS REMOVED;CATHETER INTACT WITH NO ISSUES OR COMPLICATIONS;TELE WAS REMOVED;PT WILL BE TRANSPORTED TO HOME ACCOMPANIED BY HIS .
--- NOTE | 2020-06-15 13:22 | NUR ---
Discharge instructions given. Patient verbalizes understanding of same. Discharged in stable condition via Wheelchair to Home with family. All belongings sent with pt. PT DISCHARGED IN STABLE CONDITION VIA WC TO LOBBY ACCOMPANIED BY STAFF;PT BELONGINGS WERE ALL SENT WITH PT;PT WILL BE TRANSPORTED HOME BY FAMILY.
--- NOTE | 2020-06-19 11:27 | NUR ---
Post discharge pneumonia follow u[ call completed today, 06/19/20. Pt. states he is doing well and has experienced no fever, chills, or SOB since discharge. Discharge medications were obtained and are being taken as prescribed dwithout issue. Follow up appt with PCP is scheduled on 06/22/20. No questions or concerns expressed by patient.
== END 2020-06-15 13:26 | disposition home or self-care (01) | DRG 195 ==
LOC: ED 20:18 → ED-I 22:20 → ED 22:39 → MS2 22:40 → ED 23:06 → MS2 06-13 19:01
PROVIDERS: Emergency Medicine; Nurse Practitioner; ADMIT Internal Medicine; ATTEND Internal Medicine
DX: J10.00 Influenza due to other identified influenza virus with unspecified type of pneumonia (principal); J43.9 Emphysema, unspecified; R09.02 Hypoxemia; I10 Essential (primary) hypertension; I48.91 Unspecified atrial fibrillation; R91.8 Other nonspecific abnormal finding of lung field; H91.90 Unspecified hearing loss, unspecified ear; E87.5 Hyperkalemia; M54.9 Dorsalgia, unspecified; G89.29 Other chronic pain; F17.210 Nicotine dependence, cigarettes, uncomplicated; Z90.2 Acquired absence of lung [part of]; Z79.01 Long term (current) use of anticoagulants; Z85.118 Personal history of other malignant neoplasm of bronchus and lung; Z86.16 Personal history of COVID-19; Z20.822 Contact with and (suspected) exposure to COVID-19
CPT/HCPCS: J3475; Q9967

== ENCOUNTER 2022-07-14 11:49 | Emergency (ER) | payer MEDICARE ==
[2022-07-14] VITALS (9 sets, daily range): BP systolic 112–156; BP diastolic 80–111
[~2022-07-14] VITALS: Ht 180.3 cm; Wt 76.0 kg
[~2022-07-14 11:49] MED LIST changes: +CYCLOBENZAPRINE10 MG PO; +FOLIC ACID1 MG PO; +LEVAQUIN750 M1 PO; +MEDDOSEPAK PO; +PERCOCET 10/31 COMBO PO; +TAM75CAP PO
[2022-07-14] MEDS ORDERED: ANORO ELLIPTA 61 AER IN (12:09)
[2022-07-14] MEDS ORDERED: AMITIZA8 MCG PO (12:10)
[2022-07-14] MEDS ORDERED: OXYCODONE5 M1 PO (12:10)
[2022-07-14] MEDS ORDERED: ALBUTEROL SUL0.083 % IN (12:11)
[2022-07-14] MEDS ORDERED: CELEXA40 M1 PO (12:12)
[2022-07-14] MEDS ORDERED: PREDNISONE10 MG PO (15:42)
[2022-07-14] MEDS ORDERED: LEVOFLOXACIN500MG PO (15:42)
== END 2022-07-14 16:09 | disposition home or self-care (01) ==
LOC: ED 11:49
DX: J44.1 Chronic obstructive pulmonary disease with (acute) exacerbation (principal); I10 Essential (primary) hypertension; I48.91 Unspecified atrial fibrillation; B19.20 Unspecified viral hepatitis C without hepatic coma; F17.210 Nicotine dependence, cigarettes, uncomplicated

== ENCOUNTER 2023-04-09 14:36 | Emergency (ER) | payer MEDICARE ==
[2023-04-09] VITALS (18 sets, daily range): BP systolic 98–127; BP diastolic 64–81
[~2023-04-09] VITALS: Ht 180.3 cm; Wt 68.0 kg
[~2023-04-09 14:36] MED LIST changes: +ALBUTEROL SUL0.083 % IN; +AMITIZA8 MCG PO; +ANORO ELLIPTA 61 AER IN; +CELEXA40 M1 PO; +LEVOFLOXACIN500MG PO; +OXYCODONE5 M1 PO; +PREDNISONE10 MG PO
[2023-04-09 16:06] LABS: BASO% 0.4 % (0-3); HEMATOCRIT 35.5 % (39.0-50.0); HEMOGLOBIN 11.9 g/dl (14.0-18.0); IMMATURE GRANULOCYTES 0.2 % (0.0-5.0); LYMPH% 13.5 % (15-41); MEAN CELL VOLUME 88.1 fL CALC (80.0-100.0); MEAN CORPUSCULAR HGB 29.5 pG CALC (26.0-32.0); MEAN CORPUSCULAR HGB CONC 33.5 g/dL CAL (32.0-36.0); MONO% 8.4 % (2-13); NEUT# 3.84 thou/uL (1.82-7.42); NEUT% 76.5 % (42-76); RED BLOOD COUNT 4.03 mill/uL (4.70-6.10); RED CELL DISTRI WIDTH 14.2 % (11.5-15.5)
[2023-04-09 16:21] LABS: ALBUMIN 3.8 g/dL (3.2-5.0); ALKALINE PHOSPHATASE 95 u/l (38-126); ANION GAP 6 (6-22 (CALC)); BUN 10 mg/dL (8-23); BUN/CREATININE RATIO 17 (12-20 (CALC)); CARBON DIOXIDE 30 mmol/l (22-30); CHLORIDE 106 mmol/l (95-108); CREATININE 0.6 mg/dL (0.7-1.3); GFR FOR AFR.AMER. > 60 ML/MIN (>=60 (CALC)); GFR OTHER RACES > 60 ML/MIN (>=60 (CALC)); POTASSIUM 4.2 mmol/l (3.5-5.1); SGOT/AST 28 u/l (19-48); SODIUM 137 mmol/l (137-146)
[2023-04-09 16:31] LABS: BILIRUBIN, TOTAL 1.4 mg/dL (0.2-1.3)
[2023-04-10] VITALS (10 sets, daily range): BP systolic 99–116; BP diastolic 54–76
[2023-04-10] MEDS ORDERED: XTAMPZA ER9 MG PO (01:44)
== END 2023-04-10 04:40 | disposition short-term general hospital (02) ==
LOC: ED 14:36
PROVIDERS: Nurse Practitioner
DX: S72.391A Other fracture of shaft of right femur, initial encounter for closed fracture (principal); J44.9 Chronic obstructive pulmonary disease, unspecified; I10 Essential (primary) hypertension; I48.91 Unspecified atrial fibrillation; F17.200 Nicotine dependence, unspecified, uncomplicated; W01.0XXA Fall on same level from slipping, tripping and stumbling without subsequent striking against object, initial encounter; Y92.008 Other place in unspecified non-institutional (private) residence as the place of occurrence of the external cause; Z87.81 Personal history of (healed) traumatic fracture; Z85.118 Personal history of other malignant neoplasm of bronchus and lung